=== PATIENT | male | born 1955 | race Hispanic/Latino ===

== ENCOUNTER 2023-11-18 08:11 | Inpatient (IN) | payer OTHER ==
--- OUTSIDE RECORDS SUMMARY | 2023-11-18 08:16 | XMS REPORT | Continuity of Care Document ---
Author Name Unknown Address [address] [facility] [address] [place] [address] [facility] thconnect Address [address] [facility] [address] [place] [address] Care Team Providers Care Distribution Center Associate Name Role Phone Ricardo Delgado Attending Clinician Unavailable Payers Payer Name Policy Type Policy Number Effective Date Expirati on Date Source [facility] AARP MCR Advantage (HMO-POS) [id number] 2021 00:00:00 [facility] Problems Condition Name Condition Details Condition Category Status Onset Date Resolution Date Last Treatment Date Treating Clinician Comments Source Erectile dysfunctio n Erectile dysfunctio n Problem [facility] Mixed hyperlipid emia Hyperlipid emia, mixed Problem [facility] Stented coronary artery Stented coronary artery Problem [facility] Myocardial infarction Myocardial infarction Problem [facility] Type II diabetes mellitus well controlled Diabetes type 2, controlled Problem [facility] Gastroesop hageal reflux disease Gastroesop hageal reflux disease Problem [facility] 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 Problem [facility] Hypertensi on Hypertensi on Problem [facility] Old myocardial infarction Old myocardial infarction Problem [facility] Essential hypertensi on Benign essential HTN Problem [facility] Coronary artery disease Coronary artery disease Problem [facility] Chronic obstructiv e pulmonary disease Chronic obstructiv e pulmonary disease (COPD) suggested by initial evaluation Problem [facility] Nicotine dependence Nicotine dependence Problem [facility] [id number] Primary osteoarthr itis of left knee Problem [facility] [id number] Noncomplia nce with dietary restrictio n Problem [facility] [id number] Essential hypertrigl yceridemia Problem [facility] [id number] Type 2 diabetes mellitus with hyperglyce jaxon Problem [facility] [id number] Leukocytos is, unspecifie d type Problem [facility] Osteoarthr itis of multiple joints Osteoarthr itis of multiple joints Problem [facility] [id number] Proteinuri a, unspecifie d Problem [facility] [id number] Type 2 diabetes mellitus with other diabetic kidney complicati on Problem [facility] [id number] Other obesity due to excess calories Problem [facility] [id number] Body mass index (BMI) of 30.0-30.9 in adult Problem [facility] [id number] Coronary artery disease involving chip[place]wa-cree coronary artery of chip[place]wa[place]cree heart with angina pectoris Problem [facility] [id number] Degenerati on of lumbar interverte bral disc Problem [facility] [id number] Hypercalce jaxon Problem [facility] [id number] Hypoparath yroidism, unspecifie d hypoparath yroidism type Problem [facility] [id number] PAD (periphera l artery disease) Problem [facility] Allergies, Adverse Reactions, Alerts Allergy Name Allergy Type Status Severity Reaction(s) Onset Date Inactive Date Treating Clinician Comments Source canaglif lozin canaglif lozin Active Unknown [facility] dapaglif lozin dapaglif lozin Active Unknown [facility] Social History Social Habit Start Date Stop Date Quantity Comments Source History of Tobacco Use [facility] Sex Assigned At [facility] Smoking Status Start Date Stop Date Source Former Smoker 2023-09-07 00:00:00 2023-09-07 00:00:00 [facility] Medications Ordered Medication Name Filled Medication Name Start Date Stop Date Current Medication? Ordering Clinician Indication Dosage Frequency Signature (SIG) Comments Components Source Fenofibrate 145 MG Fenofibrate 145 MG 5-11 00:00: 00 No 1{table t} QD Fenofibrat e 145 MG Toradol (Ketorolac) Toradol (Ketorolac) 3- 00:00: 00 No 60mg [facility] Toradol (Ketorolac) Toradol (Ketorolac) 3- 00:00: 00 No 60mg [facility] Toradol (Ketorolac) Toradol (Ketorolac) 3- 00:00: 00 No 60mg [facility] Toradol (Ketorolac) Toradol (Ketorolac) 3- 00:00: 00 No 60mg [facility] Toradol (Ketorolac) Toradol (Ketorolac) 3-02 00:00: 00 No 60mg [facility] Toradol (Ketorolac) Toradol (Ketorolac) 3- 00:00: 00 No 60mg [facility] Toradol (Ketorolac) Toradol (Ketorolac) 3-02 00:00: 00 No 60mg [facility] Toradol (Ketorolac) Toradol (Ketorolac) 3-02 00:00: 00 No 60mg [facility] Toradol (Ketorolac) Toradol (Ketorolac) 0 3-02 00:00: 00 No 60mg [facility] Toradol (Ketorolac) Toradol (Ketorolac) 0 3-02 00:00: 00 No 60mg [facility] Toradol (Ketorolac) Toradol (Ketorolac) 0 3- 00:00: 00 No 60mg [facility] Toradol (Ketorolac) Toradol (Ketorolac) 0 3- 00:00: 00 No 60mg [facility] Toradol (Ketorolac) Toradol (Ketorolac) 0 3- 00:00: 00 No 60mg [facility] Toradol (Ketorolac) Toradol (Ketorolac) 0 3- 00:00: 00 No 60mg [facility] Toradol (Ketorolac) Toradol (Ketorolac) 0 01-22 00:00: 00 No 60mg [facility] Toradol (Ketorolac) Toradol (Ketorolac) 0 3- 00:00: 00 No 60mg [facility] Toradol (Ketorolac) Toradol (Ketorolac) 0 3- 00:00: 00 No 60mg [facility] Toradol (Ketorolac) Toradol (Ketorolac) 0 - 00:00: 00 No 60mg [facility] Toradol (Ketorolac) Toradol (Ketorolac) 0 3- 00:00: 00 No 60mg [facility] Toradol (Ketorolac) Toradol (Ketorolac) 0 3- 00:00: 00 No 60mg [facility] Toradol (Ketorolac) Toradol (Ketorolac) 0 3- 00:00: 00 No 60mg [facility] Toradol (Ketorolac) Toradol (Ketorolac) 0 3- 00:00: 00 No 60mg [facility] methylPREDN ISolone 4 MG methylPREDN ISolone 4 MG 0 3- 00:00: 01-28 00:00 :00 No QD methylPRED NISolone 4 MG methylPREDN ISolone 4 MG methylPREDN ISolone 4 MG 01-22 00:00: 01-28 00:00 :00 No QD methylPRED NISolone 4 MG Omeprazole Omeprazole 04-14 00:00: 00 Yes Ricardo Delgado 1 capsule [facility] Janumet XR Janumet XR Yes Ricardo Delgado take 2 tablets by mouth once daily [facility] Amlodipine Besylate Amlodipine Besylate Yes Ricardo Delgado 1 tablet [facility] Carvedilol Carvedilol Yes Ricardo Delgado TAKE 1 TABLET BY MOUTH TWICE DAILY [facility] Lisinopril Lisinopril Yes Ricardo Delgado 1 tablet [facility] Coreg Coreg Yes Ricardo Delgado 1 tablet with food [facility] Simvastatin Simvastatin Yes Ricardo Delgado 1 tablet in the evening [facility] Vascepa Vascepa Yes Ricardo Delgado take two capsules by mouth twice daily [facility] Victoza Victoza Yes Ricardo Delgado INJECT 1.8MG UNDER THE SKIN ONCE A DAY [facility] Aspir-81 Aspir-81 Yes Ricardo Delgado 1 tablet [facility] Simvastatin Simvastatin Yes Ricardo Delgado TAKE 1 TABLET BY MOUTH ONCE DAILY [facility] Coreg 6.25 MG Coreg 6.25 MG No 1{table t_with_ food} BID Coreg 6.25 MG Carvedilol 6.25 MG Carvedilol 6.25 MG No Carvedilol 6.25 MG Simvastatin 80 MG Simvastatin 80 MG No 1{table t_in_th e_eveni ng} QD Simvastati n 80 MG Omeprazole 20 MG Omeprazole 20 MG No 1{capsu le} QD Omeprazole 20 MG Victoza 18 MG/3ML Victoza 18 MG/3ML No QD Victoza 18 MG/3ML Janumet XR 50-1000 MG Janumet XR 50-1000 MG No Janumet XR 50-1000 MG Carvedilol 6.25 MG Carvedilol 6.25 MG No Carvedilol 6.25 MG Victoza 18 MG/3ML Victoza 18 MG/3ML No Victoza 18 MG/3ML Vascepa 1 GM Vascepa 1 GM No Vascepa 1 GM Omeprazole 20 MG Omeprazole 20 MG No 1{capsu le} QD Omeprazole 20 MG Janumet XR 50-1000 MG Janumet XR 50-1000 MG No QD Janumet XR 50-1000 MG Lisinopril 5 MG Lisinopril 5 MG No Lisinopril 5 MG amLODIPine Besylate 5 MG amLODIPine Besylate 5 MG No 1{table t} QD amLODIPine Besylate 5 MG Simvastatin 80 MG Simvastatin 80 MG No 1{table t_in_th e_eveni ng} QD Simvastati n 80 MG amLODIPine Besylate 5 MG amLODIPine Besylate 5 MG No amLODIPine Besylate 5 MG Coreg 6.25 MG Coreg 6.25 MG No 1{table t_with_ food} BID Coreg 6.25 MG Aspir-81 81 MG Aspir-81 81 MG No 1{table t} QD Aspir-81 81 MG Vascepa 1 GM Vascepa 1 GM No BID Vascepa 1 GM Simvastatin 80 MG Simvastatin 80 MG No Simvastati n 80 MG Lisinopril 5 MG Lisinopril 5 MG No 1{table t} QD Lisinopril 5 MG Victoza 18 MG/3ML Victoza 18 MG/3ML No QD Victoza 18 MG/3ML Janumet XR 50-1000 MG Janumet XR 50-1000 MG No Janumet XR 50-1000 MG Carvedilol 6.25 MG Carvedilol 6.25 MG No Carvedilol 6.25 MG Victoza 18 MG/3ML Victoza 18 MG/3ML No Victoza 18 MG/3ML Vascepa 1 GM Vascepa 1 GM No Vascepa 1 GM Omeprazole 20 MG Omeprazole 20 MG No 1{capsu le} QD Omeprazole 20 MG Janumet XR 50-1000 MG Janumet XR 50-1000 MG No QD Janumet XR 50-1000 MG Lisinopril 5 MG Lisinopril 5 MG No Lisinopril 5 MG amLODIPine Besylate 5 MG amLODIPine Besylate 5 MG No 1{table t} QD amLODIPine Besylate 5 MG Simvastatin 80 MG Simvastatin 80 MG No 1{table t_in_ e_eveni ng} QD Simvastati n 80 MG amLODIPine Besylate 5 MG amLODIPine Besylate 5 MG No amLODIPine Besylate 5 MG Coreg 6.25 MG Coreg 6.25 MG No 1{table t_with_ food} BID Coreg 6.25 MG Aspir-81 81 MG Aspir-81 81 MG No 1{table t} QD Aspir-81 81 MG Vascepa 1 GM Vascepa 1 GM No BID Vascepa 1 GM Simvastatin 80 MG Simvastatin 80 MG No Simvastati n 80 MG Lisinopril 5 MG Lisinopril 5 MG No 1{table t} QD Lisinopril 5 MG Janumet XR 50-1000 MG Janumet XR 50-1000 MG No Janumet XR 50-1000 MG amLODIPine Besylate 5 MG amLODIPine Besylate 5 MG No amLODIPine Besylate 5 MG Janumet XR 50-1000 MG Janumet XR 50-1000 MG No QD Janumet XR 50-1000 MG Victoza 18 MG/3ML Victoza 18 MG/3ML No QD Victoza 18 MG/3ML Coreg 6.25 MG Coreg 6.25 MG No 1{table t_with_ food} BID Coreg 6.25 MG Aspir-81 81 MG Aspir-81 81 MG No 1{table t} QD Aspir-81 81 MG Lisinopril 5 MG Lisinopril 5 MG No 1{table t} QD Lisinopril 5 MG Omeprazole 20 MG Omeprazole 20 MG No 1{capsu le} QD Omeprazole 20 MG Vascepa 1 GM Vascepa 1 GM No Vascepa 1 GM Victoza 18 MG/3ML Victoza 18 MG/3ML No Victoza 18 MG/3ML Simvastatin 80 MG Simvastatin 80 MG No 1{table t_in_ e_eveni ng} QD Simvastati n 80 MG Lisinopril 5 MG Lisinopril 5 MG No Lisinopril 5 MG Simvastatin 80 MG Simvastatin 80 MG No Simvastati n 80 MG amLODIPine Besylate 5 MG amLODIPine Besylate 5 MG No 1{table t} QD amLODIPine Besylate 5 MG Vascepa 1 GM Vascepa 1 GM No BID Vascepa 1 GM Carvedilol 6.25 MG Carvedilol 6.25 MG No Carvedilol 6.25 MG Omeprazole 20 MG Omeprazole 20 MG No 1{capsu le} QD Omeprazole 20 MG Cyclobenzap rine HCl 10 MG Cyclobenzap rine HCl 10 MG No 1{table t_at_be dtime_a s_neede d} QD Cyclobenza esha HCl 10 MG Janumet XR 50-1000 MG Janumet XR 50-1000 MG No QD Janumet XR 50-1000 MG Victoza 18 MG/3ML Victoza 18 MG/3ML No QD Victoza 18 MG/3ML Lisinopril 5 MG Lisinopril 5 MG No 1{table t} QD Lisinopril 5 MG Aspir-81 81 MG Aspir-81 81 MG No 1{table t} QD Aspir-81 81 MG Simvastatin 80 MG Simvastatin 80 MG No 1{table t_in_ e_eveni ng} QD Simvastati n 80 MG amLODIPine Besylate 5 MG amLODIPine Besylate 5 MG No 1{table t} QD amLODIPine Besylate 5 MG Vascepa 1 GM Vascepa 1 GM No BID Vascepa 1 GM Coreg 6.25 MG Coreg 6.25 MG No 1{table t_with_ food} BID Coreg 6.25 MG Omeprazole 20 MG Omeprazole 20 MG No 1{capsu le} QD Omeprazole 20 MG Cyclobenzap rine HCl 10 MG Cyclobenzap rine HCl 10 MG No 1{table t_at_be dtime_a s_neede d} QD Cyclobenza esha HCl 10 MG Janumet XR 50-1000 MG Janumet XR 50-1000 MG No QD Janumet XR 50-1000 MG Victoza 18 MG/3ML Victoza 18 MG/3ML No QD Victoza 18 MG/3ML Lisinopril 5 MG Lisinopril 5 MG No 1{table t} QD Lisinopril 5 MG Aspir-81 81 MG Aspir-81 81 MG No 1{table t} QD Aspir-81 81 MG Simvastatin 80 MG Simvastatin 80 MG No 1{table t_in e_eveni ng} QD Simvastati n 80 MG amLODIPine Besylate 5 MG amLODIPine Besylate 5 MG No 1{table t} QD amLODIPine Besylate 5 MG Vascepa 1 GM Vascepa 1 GM No BID Vascepa 1 GM Coreg 6.25 MG Coreg 6.25 MG No 1{table t_with_ food} BID Coreg 6.25 MG Omeprazole 20 MG Omeprazole 20 MG No 1{capsu le} QD Omeprazole 20 MG amLODIPine Besylate 5 MG amLODIPine Besylate 5 MG No amLODIPine Besylate 5 MG Victoza 18 MG/3ML Victoza 18 MG/3ML No Victoza 18 MG/3ML Lisinopril 5 MG Lisinopril 5 MG No 1{table t} QD Lisinopril 5 MG Aspir-81 81 MG Aspir-81 81 MG No 1{table t} QD Aspir-81 81 MG Cyclobenzap rine HCl 10 MG Cyclobenzap rine HCl 10 MG No 1{table t_at_be dtime_a s_neede d} QD Cyclobenza esha HCl 10 MG Simvastatin 80 MG Simvastatin 80 MG No Simvastati n 80 MG Janumet XR 50-1000 MG Janumet XR 50-1000 MG No Janumet XR 50-1000 MG Vascepa 1 GM Vascepa 1 GM No BID Vascepa 1 GM Coreg 6.25 MG Coreg 6.25 MG No 1{table t_with_ food} BID Coreg 6.25 MG Omeprazole 20 MG Omeprazole 20 MG No 1{capsu le} QD Omeprazole 20 MG amLODIPine Besylate 5 MG amLODIPine Besylate 5 MG No amLODIPine Besylate 5 MG Victoza 18 MG/3ML Victoza 18 MG/3ML No Victoza 18 MG/3ML Lisinopril 5 MG Lisinopril 5 MG No 1{table t} QD Lisinopril 5 MG Aspir-81 81 MG Aspir-81 81 MG No 1{table t} QD Aspir-81 81 MG Cyclobenzap rine HCl 10 MG Cyclobenzap rine HCl 10 MG No 1{table t_at_be dtime_a s_neede d} QD Cyclobenza esha HCl 10 MG Simvastatin 80 MG Simvastatin 80 MG No Simvastati n 80 MG Janumet XR 50-1000 MG Janumet XR 50-1000 MG No Janumet XR 50-1000 MG Vascepa 1 GM Vascepa 1 GM No BID Vascepa 1 GM Coreg 6.25 MG Coreg 6.25 MG No 1{table t_with_ food} BID Coreg 6.25 MG Omeprazole 20 MG Omeprazole 20 MG No 1{capsu le} QD Omeprazole 20 MG Janumet XR 50-1000 MG Janumet XR 50-1000 MG No QD Janumet XR 50-1000 MG Victoza 18 MG/3ML Victoza 18 MG/3ML No Victoza 18 MG/3ML Coreg 6.25 MG Coreg 6.25 MG No 1{table t_with_ food} BID Coreg 6.25 MG Lisinopril 5 MG Lisinopril 5 MG No 1{table t} QD Lisinopril 5 MG amLODIPine Besylate 5 MG amLODIPine Besylate 5 MG No amLODIPine Besylate 5 MG Simvastatin 80 MG Simvastatin 80 MG No Simvastati n 80 MG Vascepa 1 GM Vascepa 1 GM No Vascepa 1 GM Aspir-81 81 MG Aspir-81 81 MG No 1{table t} QD Aspir-81 81 MG Cyclobenzap rine HCl 10 MG Cyclobenzap rine HCl 10 MG No 1{table t_at_be dtime_a s_neede d} QD Cyclobenza esha HCl 10 MG Omeprazole 20 MG Omeprazole 20 MG No 1{capsu le} QD Omeprazole 20 MG Janumet XR 50-1000 MG Janumet XR 50-1000 MG No QD Janumet XR 50-1000 MG Victoza 18 MG/3ML Victoza 18 MG/3ML No Victoza 18 MG/3ML Coreg 6.25 MG Coreg 6.25 MG No 1{table t_with_ food} BID Coreg 6.25 MG Lisinopril 5 MG Lisinopril 5 MG No 1{table t} QD Lisinopril 5 MG amLODIPine Besylate 5 MG amLODIPine Besylate 5 MG No amLODIPine Besylate 5 MG Simvastatin 80 MG Simvastatin 80 MG No Simvastati n 80 MG Vascepa 1 GM Vascepa 1 GM No Vascepa 1 GM Aspir-81 81 MG Aspir-81 81 MG No 1{table t} QD Aspir-81 81 MG Cyclobenzap rine HCl 10 MG Cyclobenzap rine HCl 10 MG No 1{table t_at_be dtime_a s_neede d} QD Cyclobenza esha HCl 10 MG Omeprazole 20 MG Omeprazole 20 MG No 1{capsu le} QD Omeprazole 20 MG Janumet XR 50-1000 MG Janumet XR 50-1000 MG No QD Janumet XR 50-1000 MG Victoza 18 MG/3ML Victoza 18 MG/3ML No Victoza 18 MG/3ML Coreg 6.25 MG Coreg 6.25 MG No 1{table t_with_ food} BID Coreg 6.25 MG Lisinopril 5 MG Lisinopril 5 MG No 1{table t} QD Lisinopril 5 MG amLODIPine Besylate 5 MG amLODIPine Besylate 5 MG No amLODIPine Besylate 5 MG Simvastatin 80 MG Simvastatin 80 MG No Simvastati n 80 MG Vascepa 1 GM Vascepa 1 GM No Vascepa 1 GM Aspir-81 81 MG Aspir-81 81 MG No 1{table t} QD Aspir-81 81 MG Cyclobenzap rine HCl 10 MG Cyclobenzap rine HCl 10 MG No 1{table t_at_be dtime_a s_neede d} QD Cyclobenza esha HCl 10 MG Omeprazole 20 MG Omeprazole 20 MG No 1{capsu le} QD Omeprazole 20 MG Janumet XR 50-1000 MG Janumet XR 50-1000 MG No QD Janumet XR 50-1000 MG Victoza 18 MG/3ML Victoza 18 MG/3ML No Victoza 18 MG/3ML Coreg 6.25 MG Coreg 6.25 MG No 1{table t_with_ food} BID Coreg 6.25 MG Lisinopril 5 MG Lisinopril 5 MG No 1{table t} QD Lisinopril 5 MG amLODIPine Besylate 5 MG amLODIPine Besylate 5 MG No amLODIPine Besylate 5 MG Simvastatin 80 MG Simvastatin 80 MG No Simvastati n 80 MG Vascepa 1 GM Vascepa 1 GM No Vascepa 1 GM Aspir-81 81 MG Aspir-81 81 MG No 1{table t} QD Aspir-81 81 MG Cyclobenzap rine HCl 10 MG Cyclobenzap rine HCl 10 MG No 1{table t_at_be dtime_a s_neede d} QD Cyclobenza esha HCl 10 MG Aspir-81 81 MG Aspir-81 81 MG No 1{table t} QD Aspir-81 81 MG amLODIPine Besylate 5 MG amLODIPine Besylate 5 MG No amLODIPine Besylate 5 MG Simvastatin 80 MG Simvastatin 80 MG No 1{table t_in_th e_eveni ng} QD Simvastati n 80 MG Coreg 6.25 MG Coreg 6.25 MG No 1{table t_with_ food} BID Coreg 6.25 MG Victoza 18 MG/3ML Victoza 18 MG/3ML No Victoza 18 MG/3ML Lisinopril 5 MG Lisinopril 5 MG No Lisinopril 5 MG Janumet XR 50-1000 MG Janumet XR 50-1000 MG No QD Janumet XR 50-1000 MG amLODIPine Besylate 5 MG amLODIPine Besylate 5 MG No 1{table t} QD amLODIPine Besylate 5 MG Omeprazole 20 MG Omeprazole 20 MG No 1{capsu le} QD Omeprazole 20 MG Lisinopril 5 MG Lisinopril 5 MG No 1{table t} QD Lisinopril 5 MG Cyclobenzap rine HCl 10 MG Cyclobenzap rine HCl 10 MG No 1{table t_at_be dtime_a s_neede d} QD Cyclobenza esha HCl 10 MG Janumet XR 50-1000 MG Janumet XR 50-1000 MG No QD Janumet XR 50-1000 MG Carvedilol 6.25 MG Carvedilol 6.25 MG No Carvedilol 6.25 MG Vascepa 1 GM Vascepa 1 GM No Vascepa 1 GM Victoza 18 MG/3ML Victoza 18 MG/3ML No QD Victoza 18 MG/3ML Simvastatin 80 MG Simvastatin 80 MG No Simvastati n 80 MG Carvedilol 6.25 MG Carvedilol 6.25 MG No Carvedilol 6.25 MG Lisinopril 5 MG Lisinopril 5 MG No Lisinopril 5 MG Lisinopril 5 MG Lisinopril 5 MG No 1{table t} QD Lisinopril 5 MG Cyclobenzap rine HCl 10 MG Cyclobenzap rine HCl 10 MG No 1{table t_at_be dtime_a s_neede d} QD Cyclobenza esha HCl 10 MG Janumet XR 50-1000 MG Janumet XR 50-1000 MG No QD Janumet XR 50-1000 MG Omeprazole 20 MG Omeprazole 20 MG No 1{capsu le} QD Omeprazole 20 MG Simvastatin 80 MG Simvastatin 80 MG No 1{table t_in_th e_eveni ng} QD Simvastati n 80 MG amLODIPine Besylate 5 MG amLODIPine Besylate 5 MG No 1{table t} QD amLODIPine Besylate 5 MG amLODIPine Besylate 5 MG amLODIPine Besylate 5 MG No amLODIPine Besylate 5 MG Simvastatin 80 MG Simvastatin 80 MG No Simvastati n 80 MG Victoza 18 MG/3ML Victoza 18 MG/3ML No QD Victoza 18 MG/3ML Vascepa 1 GM Vascepa 1 GM No Vascepa 1 GM Aspir-81 81 MG Aspir-81 81 MG No 1{table t} QD Aspir-81 81 MG Janumet XR 50-1000 MG Janumet XR 50-1000 MG No QD Janumet XR 50-1000 MG Coreg 6.25 MG Coreg 6.25 MG No 1{table t_with_ food} BID Coreg 6.25 MG Fenofibrate 145 MG Fenofibrate 145 MG No 1{table t} QD Fenofibrat e 145 MG Victoza 18 MG/3ML Victoza 18 MG/3ML No Victoza 18 MG/3ML Fenofibrate 145 MG Fenofibrate 145 MG No 1{table t} QD Fenofibrat e 145 MG Victoza 18 MG/3ML Victoza 18 MG/3ML No QD Victoza 18 MG/3ML Aspir-81 81 MG Aspir-81 81 MG No 1{table t} QD Aspir-81 81 MG Simvastatin 80 MG Simvastatin 80 MG No Simvastati n 80 MG Carvedilol 6.25 MG Carvedilol 6.25 MG No Carvedilol 6.25 MG Lisinopril 5 MG Lisinopril 5 MG No Lisinopril 5 MG Omeprazole 20 MG Omeprazole 20 MG No 1{capsu le} QD Omeprazole 20 MG amLODIPine Besylate 5 MG amLODIPine Besylate 5 MG No 1{table t} QD amLODIPine Besylate 5 MG Lisinopril 5 MG Lisinopril 5 MG No 1{table t} QD Lisinopril 5 MG Vascepa 1 GM Vascepa 1 GM No Vascepa 1 GM Simvastatin 80 MG Simvastatin 80 MG No 1{table t_in_ e_eveni ng} QD Simvastati n 80 MG Coreg 6.25 MG Coreg 6.25 MG No 1{table t_with_ food} BID Coreg 6.25 MG amLODIPine Besylate 5 MG amLODIPine Besylate 5 MG No amLODIPine Besylate 5 MG Janumet XR 50-1000 MG Janumet XR 50-1000 MG No QD Janumet XR 50-1000 MG Victoza 18 MG/3ML Victoza 18 MG/3ML No Victoza 18 MG/3ML Cyclobenzap rine HCl 10 MG Cyclobenzap rine HCl 10 MG No 1{table t_at_be dtime_a s_neede d} QD Cyclobenza esha HCl 10 MG Janumet XR 50-1000 MG Janumet XR 50-1000 MG No QD Janumet XR 50-1000 MG Lisinopril 5 MG Lisinopril 5 MG No 1{table t} QD Lisinopril 5 MG Carvedilol 6.25 MG Carvedilol 6.25 MG No Carvedilol 6.25 MG Fenofibrate 145 MG Fenofibrate 145 MG No Fenofibrat e 145 MG Simvastatin 80 MG Simvastatin 80 MG No 1{table t_in_th e_eveni ng} QD Simvastati n 80 MG Fenofibrate 145 MG Fenofibrate 145 MG No 1{table t} QD Fenofibrat e 145 MG Coreg 6.25 MG Coreg 6.25 MG No 1{table t_with_ food} BID Coreg 6.25 MG Victoza 18 MG/3ML Victoza 18 MG/3ML No Victoza 18 MG/3ML Janumet XR 50-1000 MG Janumet XR 50-1000 MG No QD Janumet XR 50-1000 MG Omeprazole 20 MG Omeprazole 20 MG No 1{capsu le} QD Omeprazole 20 MG Aspir-81 81 MG Aspir-81 81 MG No 1{table t} QD Aspir-81 81 MG amLODIPine Besylate 5 MG amLODIPine Besylate 5 MG No 1{table t} QD amLODIPine Besylate 5 MG Victoza 18 MG/3ML Victoza 18 MG/3ML No QD Victoza 18 MG/3ML Lisinopril 5 MG Lisinopril 5 MG No Lisinopril 5 MG Carvedilol 6.25 MG Carvedilol 6.25 MG No Carvedilol 6.25 MG Victoza 18 MG/3ML Victoza 18 MG/3ML No Victoza 18 MG/3ML Omeprazole 20 MG Omeprazole 20 MG No 1{capsu le} QD Omeprazole 20 MG Coreg 6.25 MG Coreg 6.25 MG No 1{table t_with_ food} BID Coreg 6.25 MG Aspir-81 81 MG Aspir-81 81 MG No 1{table t} QD Aspir-81 81 MG Lisinopril 5 MG Lisinopril 5 MG No Lisinopril 5 MG Simvastatin 80 MG Simvastatin 80 MG No Simvastati n 80 MG Janumet XR 50-1000 MG Janumet XR 50-1000 MG No QD Janumet XR 50-1000 MG Fenofibrate 145 MG Fenofibrate 145 MG No Fenofibrat e 145 MG Victoza 18 MG/3ML Victoza 18 MG/3ML No QD Victoza 18 MG/3ML amLODIPine Besylate 5 MG amLODIPine Besylate 5 MG No amLODIPine Besylate 5 MG Lisinopril 5 MG Lisinopril 5 MG No 1{table t} QD Lisinopril 5 MG Carvedilol 6.25 MG Carvedilol 6.25 MG No Carvedilol 6.25 MG Victoza 18 MG/3ML Victoza 18 MG/3ML No Victoza 18 MG/3ML Omeprazole 20 MG Omeprazole 20 MG No 1{capsu le} QD Omeprazole 20 MG Coreg 6.25 MG Coreg 6.25 MG No 1{table t_with_ food} BID Coreg 6.25 MG Aspir-81 81 MG Aspir-81 81 MG No 1{table t} QD Aspir-81 81 MG Lisinopril 5 MG Lisinopril 5 MG No Lisinopril 5 MG Simvastatin 80 MG Simvastatin 80 MG No Simvastati n 80 MG Janumet XR 50-1000 MG Janumet XR 50-1000 MG No QD Janumet XR 50-1000 MG Fenofibrate 145 MG Fenofibrate 145 MG No Fenofibrat e 145 MG Victoza 18 MG/3ML Victoza 18 MG/3ML No QD Victoza 18 MG/3ML amLODIPine Besylate 5 MG amLODIPine Besylate 5 MG No amLODIPine Besylate 5 MG Lisinopril 5 MG Lisinopril 5 MG No 1{table t} QD Lisinopril 5 MG Carvedilol 6.25 MG Carvedilol 6.25 MG No Carvedilol 6.25 MG Victoza 18 MG/3ML Victoza 18 MG/3ML No Victoza 18 MG/3ML Fenofibrate 145 MG Fenofibrate 145 MG No Fenofibrat e 145 MG Omeprazole 20 MG Omeprazole 20 MG No 1{capsu le} QD Omeprazole 20 MG Coreg 6.25 MG Coreg 6.25 MG No 1{table t_with_ food} BID Coreg 6.25 MG Simvastatin 80 MG Simvastatin 80 MG No 1{table t_in_th e_eveni ng} QD Simvastati n 80 MG amLODIPine Besylate 5 MG amLODIPine Besylate 5 MG No 1{table t} QD amLODIPine Besylate 5 MG Fenofibrate 145 MG Fenofibrate 145 MG No 1{table t} QD Fenofibrat e 145 MG Lisinopril 5 MG Lisinopril 5 MG No Lisinopril 5 MG Victoza 18 MG/3ML Victoza 18 MG/3ML No QD Victoza 18 MG/3ML Simvastatin 80 MG Simvastatin 80 MG No Simvastati n 80 MG Janumet XR 50-1000 MG Janumet XR 50-1000 MG No QD Janumet XR 50-1000 MG Aspir-81 81 MG Aspir-81 81 MG No 1{table t} QD Aspir-81 81 MG Lisinopril 5 MG Lisinopril 5 MG No 1{table t} QD Lisinopril 5 MG amLODIPine Besylate 5 MG amLODIPine Besylate 5 MG No amLODIPine Besylate 5 MG Janumet XR 50-1000 MG Janumet XR 50-1000 MG No QD Janumet XR 50-1000 MG Carvedilol 6.25 MG Carvedilol 6.25 MG No Carvedilol 6.25 MG Victoza 18 MG/3ML Victoza 18 MG/3ML No Victoza 18 MG/3ML Fenofibrate 145 MG Fenofibrate 145 MG No Fenofibrat e 145 MG Omeprazole 20 MG Omeprazole 20 MG No 1{capsu le} QD Omeprazole 20 MG Coreg 6.25 MG Coreg 6.25 MG No 1{table t_with_ food} BID Coreg 6.25 MG Simvastatin 80 MG Simvastatin 80 MG No 1{table t_in_th e_eveni ng} QD Simvastati n 80 MG amLODIPine Besylate 5 MG amLODIPine Besylate 5 MG No 1{table t} QD amLODIPine Besylate 5 MG Fenofibrate 145 MG Fenofibrate 145 MG No 1{table t} QD Fenofibrat e 145 MG Lisinopril 5 MG Lisinopril 5 MG No Lisinopril 5 MG Victoza 18 MG/3ML Victoza 18 MG/3ML No QD Victoza 18 MG/3ML Simvastatin 80 MG Simvastatin 80 MG No Simvastati n 80 MG Janumet XR 50-1000 MG Janumet XR 50-1000 MG No QD Janumet XR 50-1000 MG Aspir-81 81 MG Aspir-81 81 MG No 1{table t} QD Aspir-81 81 MG Lisinopril 5 MG Lisinopril 5 MG No 1{table t} QD Lisinopril 5 MG amLODIPine Besylate 5 MG amLODIPine Besylate 5 MG No amLODIPine Besylate 5 MG Janumet XR 50-1000 MG Janumet XR 50-1000 MG No QD Janumet XR 50-1000 MG Simvastatin 80 MG Simvastatin 80 MG No Simvastati n 80 MG amLODIPine Besylate 5 MG amLODIPine Besylate 5 MG No 1{table t} QD amLODIPine Besylate 5 MG Coreg 6.25 MG Coreg 6.25 MG No 1{table t_with_ food} BID Coreg 6.25 MG amLODIPine Besylate 5 MG amLODIPine Besylate 5 MG No amLODIPine Besylate 5 MG Janumet XR 50-1000 MG Janumet XR 50-1000 MG No QD Janumet XR 50-1000 MG Victoza 18 MG/3ML Victoza 18 MG/3ML No Victoza 18 MG/3ML Omeprazole 20 MG Omeprazole 20 MG No 1{capsu le} QD Omeprazole 20 MG Lisinopril 5 MG Lisinopril 5 MG No 1{table t} QD Lisinopril 5 MG Fenofibrate 145 MG Fenofibrate 145 MG No 1{table t} QD Fenofibrat e 145 MG Aspir-81 81 MG Aspir-81 81 MG No 1{table t} QD Aspir-81 81 MG Simvastatin 80 MG Simvastatin 80 MG No 1{table t_in_th e_eveni ng} QD Simvastati n 80 MG Simvastatin 80 MG Simvastatin 80 MG No Simvastati n 80 MG amLODIPine Besylate 5 MG amLODIPine Besylate 5 MG No 1{table t} QD amLODIPine Besylate 5 MG Coreg 6.25 MG Coreg 6.25 MG No 1{table t_with_ food} BID Coreg 6.25 MG amLODIPine Besylate 5 MG amLODIPine Besylate 5 MG No amLODIPine Besylate 5 MG Janumet XR 50-1000 MG Janumet XR 50-1000 MG No QD Janumet XR 50-1000 MG Victoza 18 MG/3ML Victoza 18 MG/3ML No Victoza 18 MG/3ML Omeprazole 20 MG Omeprazole 20 MG No 1{capsu le} QD Omeprazole 20 MG Lisinopril 5 MG Lisinopril 5 MG No 1{table t} QD Lisinopril 5 MG Fenofibrate 145 MG Fenofibrate 145 MG No 1{table t} QD Fenofibrat e 145 MG Aspir-81 81 MG Aspir-81 81 MG No 1{table t} QD Aspir-81 81 MG Simvastatin 80 MG Simvastatin 80 MG No 1{table t_in_th e_eveni ng} QD Simvastati n 80 MG Simvastatin 80 MG Simvastatin 80 MG No Simvastati n 80 MG Omeprazole 20 MG Omeprazole 20 MG No 1{capsu le} QD Omeprazole 20 MG amLODIPine Besylate 5 MG amLODIPine Besylate 5 MG No amLODIPine Besylate 5 MG amLODIPine Besylate 5 MG amLODIPine Besylate 5 MG No 1{table t} QD amLODIPine Besylate 5 MG Victoza 18 MG/3ML Victoza 18 MG/3ML No Victoza 18 MG/3ML Aspir-81 81 MG Aspir-81 81 MG No 1{table t} QD Aspir-81 81 MG Simvastatin 80 MG Simvastatin 80 MG No 1{table t_in_th e_eveni ng} QD Simvastati n 80 MG Lisinopril 5 MG Lisinopril 5 MG No Lisinopril 5 MG Fenofibrate 145 MG Fenofibrate 145 MG No 1{table t} QD Fenofibrat e 145 MG Carvedilol 6.25 MG Carvedilol 6.25 MG No Carvedilol 6.25 MG Janumet XR 50-1000 MG Janumet XR 50-1000 MG No QD Janumet XR 50-1000 MG Simvastatin 80 MG Simvastatin 80 MG No Simvastati n 80 MG Omeprazole 20 MG Omeprazole 20 MG No 1{capsu le} QD Omeprazole 20 MG Aspir-81 81 MG Aspir-81 81 MG No 1{table t} QD Aspir-81 81 MG Carvedilol 6.25 MG Carvedilol 6.25 MG No Carvedilol 6.25 MG Janumet XR 50-1000 MG Janumet XR 50-1000 MG No QD Janumet XR 50-1000 MG amLODIPine Besylate 5 MG amLODIPine Besylate 5 MG No amLODIPine Besylate 5 MG Fenofibrate 145 MG Fenofibrate 145 MG No 1{table t} QD Fenofibrat e 145 MG Lisinopril 5 MG Lisinopril 5 MG No Lisinopril 5 MG Victoza 18 MG/3ML Victoza 18 MG/3ML No Victoza 18 MG/3ML Aspir-81 81 MG Aspir-81 81 MG No 1{table t} QD Aspir-81 81 MG amLODIPine Besylate 5 MG amLODIPine Besylate 5 MG No 1{table t} QD amLODIPine Besylate 5 MG Victoza 18 MG/3ML Victoza 18 MG/3ML No QD Victoza 18 MG/3ML Vascepa 1 GM Vascepa 1 GM No BID Vascepa 1 GM Simvastatin 80 MG Simvastatin 80 MG No Simvastati n 80 MG Omeprazole 20 MG Omeprazole 20 MG No 1{capsu le} QD Omeprazole 20 MG Aspir-81 81 MG Aspir-81 81 MG No 1{table t} QD Aspir-81 81 MG Carvedilol 6.25 MG Carvedilol 6.25 MG No Carvedilol 6.25 MG Janumet XR 50-1000 MG Janumet XR 50-1000 MG No QD Janumet XR 50-1000 MG amLODIPine Besylate 5 MG amLODIPine Besylate 5 MG No amLODIPine Besylate 5 MG Fenofibrate 145 MG Fenofibrate 145 MG No 1{table t} QD Fenofibrat e 145 MG Lisinopril 5 MG Lisinopril 5 MG No Lisinopril 5 MG Coreg 6.25 MG Coreg 6.25 MG No 1{table t_with_ food} BID Coreg 6.25 MG Victoza 18 MG/3ML Victoza 18 MG/3ML No Victoza 18 MG/3ML Lisinopril 5 MG Lisinopril 5 MG No 1{table t} QD Lisinopril 5 MG Janumet XR 50-1000 MG Janumet XR 50-1000 MG No Janumet XR 50-1000 MG Janumet XR 50-1000 MG Janumet XR 50-1000 MG No QD Janumet XR 50-1000 MG Simvastatin 80 MG Simvastatin 80 MG No Simvastati n 80 MG Omeprazole 20 MG Omeprazole 20 MG No 1{capsu le} QD Omeprazole 20 MG Aspir-81 81 MG Aspir-81 81 MG No 1{table t} QD Aspir-81 81 MG Carvedilol 6.25 MG Carvedilol 6.25 MG No Carvedilol 6.25 MG Janumet XR 50-1000 MG Janumet XR 50-1000 MG No QD Janumet XR 50-1000 MG amLODIPine Besylate 5 MG amLODIPine Besylate 5 MG No amLODIPine Besylate 5 MG Fenofibrate 145 MG Fenofibrate 145 MG No 1{table t} QD Fenofibrat e 145 MG Lisinopril 5 MG Lisinopril 5 MG No Lisinopril 5 MG Victoza 18 MG/3ML Victoza 18 MG/3ML No Victoza 18 MG/3ML amLODIPine Besylate 5 MG amLODIPine Besylate 5 MG No amLODIPine Besylate 5 MG Victoza 18 MG/3ML Victoza 18 MG/3ML No Victoza 18 MG/3ML Lisinopril 5 MG Lisinopril 5 MG No 1{table t} QD Lisinopril 5 MG Simvastatin 80 MG Simvastatin 80 MG No Simvastati n 80 MG Immunizations Ordered Immunization Name Filled Immunization Name Date Status Comments Source Moderna COVID-19 Vaccine (Low Dose Booster) Moderna COVID-19 Vaccine (Low Dose Booster) 2022-04-02 15:20:00 Completed [facility] Moderna COVID-19 Vaccine (Low Dose Booster) Moderna COVID-19 Vaccine (Low Dose Booster) 2022-04-02 15:20:00 Completed [facility] Moderna COVID-19 Vaccine (Low Dose Booster) Moderna COVID-19 Vaccine (Low Dose Booster) 2022-04-02 15:20:00 [facility] Moderna COVID-19 Vaccine (Low Dose Booster) Moderna COVID-19 Vaccine (Low Dose Booster) 2022-04-02 15:20:00 Completed [facility] Moderna COVID-19 Vaccine (Low Dose Booster) Moderna COVID-19 Vaccine (Low Dose Booster) 2022-04-02 15:20:00 Completed [facility] Moderna COVID-19 Vaccine (Low Dose Booster) Moderna COVID-19 Vaccine (Low Dose Booster) 2022-04-02 15:20:00 [facility] Moderna COVID-19 Vaccine (Low Dose Booster) Moderna COVID-19 Vaccine (Low Dose Booster) 2022-04-02 15:20:00 [facility] Shingrix Shingrix 2020-09-21 14:56:00 [facility] Shingrix Shingrix 2020-09-21 14:56:00 [facility] Shingrix Shingrix 2020-09-21 14:56:00 [facility] Shingrix Shingrix 2020-09-21 14:56:00 [facility] Shingrix Shingrix 2020-09-21 14:56:00 [facility] Shingrix Shingrix 2020-09-21 14:56:00 [facility] Shingrix Shingrix 2020-09-21 14:56:00 [facility] Shingrix Shingrix 2020-09-21 14:56:00 [facility] Shingrix Shingrix 2020-09-21 14:56:00 [facility] Shingrix Shingrix 2020-09-21 14:56:00 [facility] Shingrix Shingrix 2020-09-21 14:56:00 [facility] Shingrix Shingrix 2020-09-21 14:56:00 [facility] Shingrix Shingrix 2020-09-21 14:56:00 Completed [facility] Shingrix Shingrix 2020-09-21 14:56:00 Completed [facility] Shingrix Shingrix 2020-09-21 14:56:00 Completed [facility] Shingrix Shingrix 2020-09-21 14:56:00 Completed [facility] Shingrix Shingrix 2020-09-21 14:56:00 Completed [facility] Shingrix Shingrix 2020-09-21 14:56:00 Completed [facility] Shingrix Shingrix 2020-09-21 14:56:00 Completed [facility] Shingrix Shingrix 2020-09-21 14:56:00 Completed [facility] FLUZONE HIGH DOSE OVER 65 FLUZONE HIGH DOSE OVER 65 2020-09-21 13:38:00 Completed [facility] FLUZONE HIGH DOSE OVER 65 FLUZONE HIGH DOSE OVER 65 2020-09-21 13:38:00 Completed [facility] FLUZONE HIGH DOSE OVER 65 FLUZONE HIGH DOSE OVER 65 2020-09-21 13:38:00 Completed [facility] FLUZONE HIGH DOSE OVER 65 FLUZONE HIGH DOSE OVER 65 2020-09-21 13:38:00 Completed [facility] FLUZONE HIGH DOSE OVER 65 FLUZONE HIGH DOSE OVER 65 2020-09-21 13:38:00 Completed [facility] FLUZONE HIGH DOSE OVER 65 FLUZONE HIGH DOSE OVER 65 2020-09-21 13:38:00 Completed [facility] FLUZONE HIGH DOSE OVER 65 FLUZONE HIGH DOSE OVER 65 2020-09-21 13:38:00 Completed [facility] FLUZONE HIGH DOSE OVER 65 FLUZONE HIGH DOSE OVER 65 2020-09-21 13:38:00 Completed [facility] FLUZONE HIGH DOSE OVER 65 FLUZONE HIGH DOSE OVER 65 2020-09-21 13:38:00 Completed [facility] FLUZONE HIGH DOSE OVER 65 FLUZONE HIGH DOSE OVER 65 2020-09-21 13:38:00 Completed [facility] FLUZONE HIGH DOSE OVER 65 FLUZONE HIGH DOSE OVER 65 2020-09-21 13:38:00 Completed [facility] FLUZONE HIGH DOSE OVER 65 FLUZONE HIGH DOSE OVER 65 2020-09-21 13:38:00 Completed [facility] FLUZONE HIGH DOSE OVER 65 FLUZONE HIGH DOSE OVER 65 2020-09-21 13:38:00 Completed [facility] FLUZONE HIGH DOSE OVER 65 FLUZONE HIGH DOSE OVER 65 2020-09-21 13:38:00 Completed [facility] FLUZONE HIGH DOSE OVER 65 FLUZONE HIGH DOSE OVER 65 2020-09-21 13:38:00 Completed [facility] FLUZONE HIGH DOSE OVER 65 FLUZONE HIGH DOSE OVER 65 2020-09-21 13:38:00 Completed [facility] FLUZONE HIGH DOSE OVER 65 FLUZONE HIGH DOSE OVER 65 2020-09-21 13:38:00 Completed [facility] FLUZONE HIGH DOSE OVER 65 FLUZONE HIGH DOSE OVER 65 2020-09-21 13:38:00 Completed [facility] FLUZONE HIGH DOSE OVER 65 FLUZONE HIGH DOSE OVER 65 2020-09-21 13:38:00 Completed [facility] FLUZONE HIGH DOSE OVER 65 FLUZONE HIGH DOSE OVER 65 2020-09-21 13:38:00 Completed [facility] FLUZONE HIGH DOSE OVER 65 FLUZONE HIGH DOSE OVER 65 2019-11-17 10:52:00 Completed [facility] FLUZONE HIGH DOSE OVER 65 FLUZONE HIGH DOSE OVER 65 2019-11-17 10:52:00 Completed [facility] FLUZONE HIGH DOSE OVER 65 FLUZONE HIGH DOSE OVER 65 2019-11-17 10:52:00 Completed [facility] FLUZONE HIGH DOSE OVER 65 FLUZONE HIGH DOSE OVER 65 2019-11-17 10:52:00 Completed [facility] FLUZONE HIGH DOSE OVER 65 FLUZONE HIGH DOSE OVER 65 2019-11-17 10:52:00 Completed [facility] FLUZONE HIGH DOSE OVER 65 FLUZONE HIGH DOSE OVER 65 2019-11-17 10:52:00 Completed [facility] FLUZONE HIGH DOSE OVER 65 FLUZONE HIGH DOSE OVER 65 2019-11-17 10:52:00 Completed [facility] FLUZONE HIGH DOSE OVER 65 FLUZONE HIGH DOSE OVER 65 2019-11-17 10:52:00 Completed [facility] FLUZONE HIGH DOSE OVER 65 FLUZONE HIGH DOSE OVER 65 2019-11-17 10:52:00 Completed [facility] FLUZONE HIGH DOSE OVER 65 FLUZONE HIGH DOSE OVER 65 2019-11-17 10:52:00 Completed [facility] FLUZONE HIGH DOSE OVER 65 FLUZONE HIGH DOSE OVER 65 2019-11-17 10:52:00 Completed [facility] FLUZONE HIGH DOSE OVER 65 FLUZONE HIGH DOSE OVER 65 2019-11-17 10:52:00 Completed [facility] FLUZONE HIGH DOSE OVER 65 FLUZONE HIGH DOSE OVER 65 2019-11-17 10:52:00 Completed [facility] FLUZONE HIGH DOSE OVER 65 FLUZONE HIGH DOSE OVER 65 2019-11-17 10:52:00 Completed [facility] FLUZONE HIGH DOSE OVER 65 FLUZONE HIGH DOSE OVER 65 2019-11-17 10:52:00 Completed [facility] FLUZONE HIGH DOSE OVER 65 FLUZONE HIGH DOSE OVER 65 2019-11-17 10:52:00 Completed [facility] FLUZONE HIGH DOSE OVER 65 FLUZONE HIGH DOSE OVER 65 2019-11-17 10:52:00 Completed [facility] FLUZONE HIGH DOSE OVER 65 FLUZONE HIGH DOSE OVER 65 2019-11-17 10:52:00 Completed [facility] FLUZONE HIGH DOSE OVER 65 FLUZONE HIGH DOSE OVER 65 2019-11-17 10:52:00 Completed [facility] FLUZONE HIGH DOSE OVER 65 FLUZONE HIGH DOSE OVER 65 2019-11-17 10:52:00 Completed [facility] Prevnar 13 -Pneumonia Vaccine Prevnar 13 -Pneumonia Vaccine 2019-11-17 10:51:00 Completed [facility] Prevnar 13 -Pneumonia Vaccine Prevnar 13 -Pneumonia Vaccine 2019-11-17 10:51:00 Completed [facility] Prevnar 13 -Pneumonia Vaccine Prevnar 13 -Pneumonia Vaccine 2019-11-17 10:51:00 Completed [facility] Prevnar 13 -Pneumonia Vaccine Prevnar 13 -Pneumonia Vaccine 2019-11-17 10:51:00 Completed [facility] Prevnar 13 -Pneumonia Vaccine Prevnar 13 -Pneumonia Vaccine 2019-11-17 10:51:00 Completed [facility] Prevnar 13 -Pneumonia Vaccine Prevnar 13 -Pneumonia Vaccine 2019-11-17 10:51:00 Completed [facility] Prevnar 13 -Pneumonia Vaccine Prevnar 13 -Pneumonia Vaccine 2019-11-17 10:51:00 Completed [facility] Prevnar 13 -Pneumonia Vaccine Prevnar 13 -Pneumonia Vaccine 2019-11-17 10:51:00 Completed [facility] Prevnar 13 -Pneumonia Vaccine Prevnar 13 -Pneumonia Vaccine 2019-11-17 10:51:00 Completed [facility] Prevnar 13 -Pneumonia Vaccine Prevnar 13 -Pneumonia Vaccine 2019-11-17 10:51:00 Completed [facility] Prevnar 13 -Pneumonia Vaccine Prevnar 13 -Pneumonia Vaccine 2019-11-17 10:51:00 Completed [facility] Prevnar 13 -Pneumonia Vaccine Prevnar 13 -Pneumonia Vaccine 2019-11-17 10:51:00 Completed [facility] Prevnar 13 -Pneumonia Vaccine Prevnar 13 -Pneumonia Vaccine 2019-11-17 10:51:00 Completed [facility] Prevnar 13 -Pneumonia Vaccine Prevnar 13 -Pneumonia Vaccine 2019-11-17 10:51:00 Completed [facility] Prevnar 13 -Pneumonia Vaccine Prevnar 13 -Pneumonia Vaccine 2019-11-17 10:51:00 Completed [facility] Prevnar 13 -Pneumonia Vaccine Prevnar 13 -Pneumonia Vaccine 2019-11-17 10:51:00 Completed [facility] Prevnar 13 -Pneumonia Vaccine Prevnar 13 -Pneumonia Vaccine 2019-11-17 10:51:00 Completed [facility] Prevnar 13 -Pneumonia Vaccine Prevnar 13 -Pneumonia Vaccine 2019-11-17 10:51:00 Completed [facility] Prevnar 13 -Pneumonia Vaccine Prevnar 13 -Pneumonia Vaccine 2019-11-17 10:51:00 Completed [facility] Prevnar 13 -Pneumonia Vaccine Prevnar 13 -Pneumonia Vaccine 2019-11-17 10:51:00 Completed [facility] Shingrix Shingrix 2019-03-10 15:14:00 Completed [facility] Shingrix Shingrix 2019-03-10 15:14:00 Completed [facility] Shingrix Shingrix 2019-03-10 15:14:00 Completed [facility] Shingrix Shingrix 2019-03-10 15:14:00 Completed [facility] Shingrix Shingrix 2019-03-10 15:14:00 Completed [facility] Shingrix Shingrix 2019-03-10 15:14:00 Completed [facility] Shingrix Shingrix 2019-03-10 15:14:00 Completed [facility] Shingrix Shingrix 2019-03-10 15:14:00 Completed [facility] Shingrix Shingrix 2019-03-10 15:14:00 Completed [facility] Shingrix Shingrix 2019-03-10 15:14:00 Completed [facility] Shingrix Shingrix 2019-03-10 15:14:00 Completed [facility] Shingrix Shingrix 2019-03-10 15:14:00 Completed [facility] Shingrix Shingrix 2019-03-10 15:14:00 [facility] Shingrix Shingrix 2019-03-10 15:14:00 [facility] Shingrix Shingrix 2019-03-10 15:14:00 [facility] Shingrix Shingrix 2019-03-10 15:14:00 [facility] Shingrix Shingrix 2019-03-10 15:14:00 [facility] Shingrix Shingrix 2019-03-10 15:14:00 [facility] Shingrix Shingrix 2019-03-10 15:14:00 [facility] Shingrix Shingrix 2019-03-10 15:14:00 [facility] Shingrix Shingrix 2019-03-10 00:00:00 [facility] Adacel (Tdap) Adacel (Tdap) 2019-01-28 09:45:00 [facility] Adacel (Tdap) Adacel (Tdap) 2019-01-28 09:45:00 [facility] Adacel (Tdap) Adacel (Tdap) 2019-01-28 09:45:00 [facility] Adacel (Tdap) Adacel (Tdap) 2019-01-28 09:45:00 [facility] Adacel (Tdap) Adacel (Tdap) 2019-01-28 09:45:00 [facility] Adacel (Tdap) Adacel (Tdap) 2019-01-28 09:45:00 [facility] Adacel (Tdap) Adacel (Tdap) 2019-01-28 09:45:00 [facility] Adacel (Tdap) Adacel (Tdap) 2019-01-28 09:45:00 [facility] Adacel (Tdap) Adacel (Tdap) 2019-01-28 09:45:00 [facility] Adacel (Tdap) Adacel (Tdap) 2019-01-28 09:45:00 [facility] Adacel (Tdap) Adacel (Tdap) 2019-01-28 09:45:00 [facility] Adacel (Tdap) Adacel (Tdap) 2019-01-28 09:45:00 [facility] Adacel (Tdap) Adacel (Tdap) 2019-01-28 09:45:00 [facility] Adacel (Tdap) Adacel (Tdap) 2019-01-28 09:45:00 [facility] Adacel (Tdap) Adacel (Tdap) 2019-01-28 09:45:00 [facility] Adacel (Tdap) Adacel (Tdap) 2019-01-28 09:45:00 [facility] Adacel (Tdap) Adacel (Tdap) 2019-01-28 09:45:00 [facility] Adacel (Tdap) Adacel (Tdap) 2019-01-28 09:45:00 [facility] Adacel (Tdap) Adacel (Tdap) 2019-01-28 09:45:00 [facility] Adacel (Tdap) Adacel (Tdap) 2019-01-28 09:45:00 [facility] TDAP > 7 Years-Adacel TDAP > 7 Years-Adacel 2019-01-28 00:00:00 [facility]pleted [facility] Twinrix Twinrix 2018-08-16 09:10:00 [facility] Twinrix Twinrix 2018-08-16 09:10:00 [facility] Twinrix Twinrix 2018-08-16 09:10:00 [facility] Twinrix Twinrix 2018-08-16 09:10:00 [facility] Twinrix Twinrix 2018-08-16 09:10:00 [facility] Twinrix Twinrix 2018-08-16 09:10:00 [facility] Twinrix Twinrix 2018-08-16 09:10:00 [facility] Twinrix Twinrix 2018-08-16 09:10:00 [facility] Twinrix Twinrix 2018-08-16 09:10:00 [facility] Twinrix Twinrix 2018-08-16 09:10:00 [facility] Twinrix Twinrix 2018-08-16 09:10:00 [facility] Twinrix Twinrix 2018-08-16 09:10:00 [facility] Twinrix Twinrix 2018-08-16 09:10:00 [facility] Twinrix Twinrix 2018-08-16 09:10:00 [facility] Twinrix Twinrix 2018-08-16 09:10:00 [facility] Twinrix Twinrix 2018-08-16 09:10:00 [facility] Twinrix Twinrix 2018-08-16 09:10:00 [facility] Twinrix Twinrix 2018-08-16 09:10:00 [facility] Twinrix Twinrix 2018-08-16 09:10:00 [facility] Twinrix Twinrix 2018-08-16 09:10:00 Completed [facility] FLUZONE HIGH DOSE OVER 65 FLUZONE HIGH DOSE OVER 65 2018-08-16 09:04:00 Completed [facility] FLUZONE HIGH DOSE OVER 65 FLUZONE HIGH DOSE OVER 65 2018-08-16 09:04:00 Completed [facility] FLUZONE HIGH DOSE OVER 65 FLUZONE HIGH DOSE OVER 65 2018-08-16 09:04:00 Completed [facility] FLUZONE HIGH DOSE OVER 65 FLUZONE HIGH DOSE OVER 65 2018-08-16 09:04:00 Completed [facility] FLUZONE HIGH DOSE OVER 65 FLUZONE HIGH DOSE OVER 65 2018-08-16 09:04:00 Completed [facility] FLUZONE HIGH DOSE OVER 65 FLUZONE HIGH DOSE OVER 65 2018-08-16 09:04:00 Completed [facility] FLUZONE HIGH DOSE OVER 65 FLUZONE HIGH DOSE OVER 65 2018-08-16 09:04:00 Completed [facility] FLUZONE HIGH DOSE OVER 65 FLUZONE HIGH DOSE OVER 65 2018-08-16 09:04:00 Completed [facility] FLUZONE HIGH DOSE OVER 65 FLUZONE HIGH DOSE OVER 65 2018-08-16 09:04:00 Completed [facility] FLUZONE HIGH DOSE OVER 65 FLUZONE HIGH DOSE OVER 65 2018-08-16 09:04:00 Completed [facility] FLUZONE HIGH DOSE OVER 65 FLUZONE HIGH DOSE OVER 65 2018-08-16 09:04:00 Completed [facility] FLUZONE HIGH DOSE OVER 65 FLUZONE HIGH DOSE OVER 65 2018-08-16 09:04:00 Completed [facility] FLUZONE HIGH DOSE OVER 65 FLUZONE HIGH DOSE OVER 65 2018-08-16 09:04:00 Completed [facility] FLUZONE HIGH DOSE OVER 65 FLUZONE HIGH DOSE OVER 65 2018-08-16 09:04:00 Completed [facility] FLUZONE HIGH DOSE OVER 65 FLUZONE HIGH DOSE OVER 65 2018-08-16 09:04:00 Completed [facility] FLUZONE HIGH DOSE OVER 65 FLUZONE HIGH DOSE OVER 65 2018-08-16 09:04:00 Completed [facility] FLUZONE HIGH DOSE OVER 65 FLUZONE HIGH DOSE OVER 65 2018-08-16 09:04:00 Completed [facility] FLUZONE HIGH DOSE OVER 65 FLUZONE HIGH DOSE OVER 65 2018-08-16 09:04:00 Completed [facility] FLUZONE HIGH DOSE OVER 65 FLUZONE HIGH DOSE OVER 65 2018-08-16 09:04:00 Completed [facility] FLUZONE HIGH DOSE OVER 65 FLUZONE HIGH DOSE OVER 65 2018-08-16 09:04:00 Completed [facility] FLUZONE HIGH DOSE OVER 65 FLUZONE HIGH DOSE OVER 65 Unknown Completed [facility] FluAD Quad SD FluAD Quad SD Unknown Completed [facility] FLUZONE HIGH DOSE OVER 65 FLUZONE HIGH DOSE OVER 65 Unknown Completed [facility] FLUZONE HIGH DOSE OVER 65 FLUZONE HIGH DOSE OVER 65 Unknown Completed [facility] Adacel (Tdap) Adacel (Tdap) Unknown Completed [facility] Moderna COVID-19 Vaccine (Low Dose Booster) Moderna COVID-19 Vaccine (Low Dose Booster) Unknown Completed [facility] Shingrix Shingrix Unknown Completed [facility] Shingrix Shingrix Unknown Completed [facility] Twinrix Twinrix Unknown Completed [facility] Prevnar 13 -Pneumonia Vaccine Prevnar 13 -Pneumonia Vaccine Unknown Completed [facility] FLUZONE HIGH DOSE OVER 65 FLUZONE HIGH DOSE OVER 65 Unknown [facility] [place] FluAD Quad SD FluAD Quad SD Unknown Completed [facility] FLUZONE HIGH DOSE OVER 65 FLUZONE HIGH DOSE OVER 65 Unknown Completed [facility] [place] FLUZONE HIGH DOSE OVER 65 FLUZONE HIGH DOSE OVER 65 Unknown Completed [facility] [place] Adacel (Tdap) Adacel (Tdap) Unknown Completed [facility] Moderna COVID-19 Vaccine (Low Dose Booster) Moderna COVID-19 Vaccine (Low Dose Booster) Unknown Completed [facility] [place] Shingrix Shingrix Unknown Completed [facility] Shingrix Shingrix Unknown Completed [facility] Twinrix Twinrix Unknown Completed [facility] Prevnar 13 -Pneumonia Vaccine Prevnar 13 -Pneumonia Vaccine Unknown Completed [facility] [place] FLUZONE HIGH DOSE OVER 65 FLUZONE HIGH DOSE OVER 65 Unknown Completed [facility] [place] FluAD Quad SD FluAD Quad SD Unknown Completed [facility] FLUZONE HIGH DOSE OVER 65 FLUZONE HIGH DOSE OVER 65 Unknown Completed [facility] [place] FLUZONE HIGH DOSE OVER 65 FLUZONE HIGH DOSE OVER 65 Unknown Completed [facility] [place] Adacel (Tdap) Adacel (Tdap) Unknown Completed [facility] Moderna COVID-19 Vaccine (Low Dose Booster) Moderna COVID-19 Vaccine (Low Dose Booster) Unknown Completed [facility] [place] Shingrix Shingrix Unknown Completed [facility] Shingrix Shingrix Unknown Completed [facility] Twinrix Twinrix Unknown Completed [facility] Prevnar 13 -Pneumonia Vaccine Prevnar 13 -Pneumonia Vaccine Unknown Completed [facility] [place] FLUZONE HIGH DOSE OVER 65 FLUZONE HIGH DOSE OVER 65 Unknown Completed [facility] [place] FluAD Quad SD FluAD Quad SD Unknown Completed [facility] FLUZONE HIGH DOSE OVER 65 FLUZONE HIGH DOSE OVER 65 Unknown Completed [facility] [place] FLUZONE HIGH DOSE OVER 65 FLUZONE HIGH DOSE OVER 65 Unknown Completed [facility] [place] Adacel (Tdap) Adacel (Tdap) Unknown Completed [facility] Moderna COVID-19 Vaccine (Low Dose Booster) Moderna COVID-19 Vaccine (Low Dose Booster) Unknown Completed [facility] [place] Shingrix Shingrix Unknown Completed [facility] Shingrix Shingrix Unknown Completed [facility] Twinrix Twinrix Unknown Completed [facility] Prevnar 13 -Pneumonia Vaccine Prevnar 13 -Pneumonia Vaccine Unknown Completed [facility] [place] FLUZONE HIGH DOSE OVER 65 FLUZONE HIGH DOSE OVER 65 Unknown Completed [facility] [place] FluAD Quad SD FluAD Quad SD Unknown Completed [facility] FLUZONE HIGH DOSE OVER 65 FLUZONE HIGH DOSE OVER 65 Unknown Completed [facility] [place] FLUZONE HIGH DOSE OVER 65 FLUZONE HIGH DOSE OVER 65 Unknown Completed [facility] [place] Adacel (Tdap) Adacel (Tdap) Unknown Completed [facility] Moderna COVID-19 Vaccine (Low Dose Booster) Moderna COVID-19 Vaccine (Low Dose Booster) Unknown Completed [facility] [place] Shingrix Shingrix Unknown Completed [facility] Shingrix Shingrix Unknown Completed [facility] Twinrix Twinrix Unknown Completed [facility] Prevnar 13 -Pneumonia Vaccine Prevnar 13 -Pneumonia Vaccine Unknown Completed [facility] [place] FLUZONE HIGH DOSE OVER 65 FLUZONE HIGH DOSE OVER 65 Unknown Completed [facility] [place] FluAD Quad SD FluAD Quad SD Unknown Completed [facility] FLUZONE HIGH DOSE OVER 65 FLUZONE HIGH DOSE OVER 65 Unknown Completed [facility] [place] FLUZONE HIGH DOSE OVER 65 FLUZONE HIGH DOSE OVER 65 Unknown Completed [facility] [place] Adacel (Tdap) Adacel (Tdap) Unknown Completed [facility] Moderna COVID-19 Vaccine (Low Dose Booster) Moderna COVID-19 Vaccine (Low Dose Booster) Unknown Completed [facility] [place] Shingrix Shingrix Unknown Completed [facility] Shingrix Shingrix Unknown Completed [facility] Twinrix Twinrix Unknown Completed [facility] Prevnar 13 -Pneumonia Vaccine Prevnar 13 -Pneumonia Vaccine Unknown Completed [facility] [place] Vital Signs Vital Name Observation Time Observation Value Comments S shilpa height 2023-05-07 08:20:00 65 [in_i] Commo n [facility] weight 2023-05-07 08:20:00 197 [lb_av] Comm on [facility] temperature 2023-05-07 08:20:00 96.9 [degF] Com mon [facility] bmi 2023-05-07 08:20:00 32.78 kg/m2 Comm on [facility] oximetry 2023-05-07 08:20:00 97 % Commo n [facility] respiratory rate 2023-05-07 08:20:00 16 /min [facility] [place] blood pressure systolic 2023-05-07 08:20:00 136 mm[Hg] [facility] blood pressure diastolic 2023-05-07 08:20:00 78 mm[Hg] [facility] height 2023-01-09 10:10:00 65 [in_i] Commo n [facility] weight 2023-01-09 10:10:00 200.0 [lb_av] Co mmon [facility] temperature 2023-01-09 10:10:00 97.1 [degF] Com [facility] bmi 2023-01-09 10:10:00 33.28 kg/m2 Comm on [facility] oximetry 2023-01-09 10:10:00 99 % Commo n [facility] respiratory rate 2023-01-09 10:10:00 18 /min [facility] [place] blood pressure systolic 2023-01-09 10:10:00 130 mm[Hg] Common [facility] blood pressure diastolic 2023-01-09 10:10:00 72 mm[Hg] [facility] height 2023-01-09 10:20:00 65 [in_i] Commo n [facility] weight 2023-01-09 10:20:00 200.0 [lb_av] Co mmon [facility] temperature 2023-01-09 10:20:00 97.1 [degF] Com mon [facility] bmi 2023-01-09 10:20:00 33.28 kg/m2 Comm on [facility] oximetry 2023-01-09 10:20:00 99 % Commo n [facility] respiratory rate 2023-01-09 10:20:00 18 /min Common [facility] blood pressure systolic 2023-01-09 10:20:00 130 mm[Hg] [facility] blood pressure diastolic 2023-01-09 10:20:00 72 mm[Hg] Common [facility] height 2022-09-25 08:20:00 65 [in_i] Commo n [facility] weight 2022-09-25 08:20:00 194 [lb_av] Comm on [facility] temperature 2022-09-25 08:20:00 97.4 [degF] Com [facility] bmi 2022-09-25 08:20:00 32.28 kg/m2 Comm on [facility] oximetry 2022-09-25 08:20:00 95 % Commo n [facility] respiratory rate 2022-09-25 08:20:00 18 /min Common [facility] blood pressure systolic 2022-09-25 08:20:00 138 mm[Hg] Common [facility] blood pressure diastolic 2022-09-25 08:20:00 76 mm[Hg] Common [facility] height 2022-06-25 09:10:00 65 [in_i] Commo n [facility] weight 2022-06-25 09:10:00 188 [lb_av] Comm on [facility] temperature 2022-06-25 09:10:00 97.7 [degF] Com [facility] bmi 2022-06-25 09:10:00 31.28 kg/m2 Comm on [facility] oximetry 2022-06-25 09:10:00 94 % Commo n [facility] respiratory rate 2022-06-25 09:10:00 18 /min [facility] [place] blood pressure systolic 2022-06-25 09:10:00 132 mm[Hg] [facility] blood pressure diastolic 2022-06-25 09:10:00 80 mm[Hg] [facility] height 2022-04-30 08:50:00 66 [in_i] Commo n [facility] weight 2022-04-30 08:50:00 182.6 [facility]lb_av[facility]-30 08:50:00 97.3 [degF] Com [facility] bmi 2022-04-30 08:50:00 29.47 kg/m2 Comm on [facility] oximetry 2022-04-30 08:50:00 98 % Commo n [facility] respiratory rate 2022-04-30 08:50:00 17 /min [facility] [place] blood pressure systolic 2022-04-30 08:50:00 122 mm[Hg] [facility] blood pressure diastolic 2022-04-30 08:50:00 76 mm[Hg] [facility] height 2022-04-02 09:00:00 66 [in_i] Commo n [facility] weight 2022-04-02 09:00:00 182.8 [lb_av] Co [facility] temperature 2022-04-02 09:00:00 97.5 [degF] Com [facility] bmi 2022-04-02 09:00:00 29.5 kg/m2 Commo n [facility] oximetry 2022-04-02 09:00:00 96 % Commo n [facility] respiratory rate 2022-04-02 09:00:00 17 /min Common [facility] blood pressure systolic 2022-04-02 09:00:00 132 mm[Hg] Common [facility] blood pressure diastolic 2022-04-02 09:00:00 73 mm[Hg] Common [facility] height 2022-01-22 08:40:00 66 [in_i] Commo n [facility] weight 2022-01-22 08:40:00 192.8 [lb_av] Co [facility] temperature 2022-01-22 08:40:00 97.2 [degF] Com [facility] bmi 2022-01-22 08:40:00 31.12 kg/m2 Comm on [facility] oximetry 2022-01-22 08:40:00 98 % Commo n [facility] respiratory rate 2022-01-22 08:40:00 16 /min [facility] [place] blood pressure systolic 2022-01-22 08:40:00 124 mm[Hg] Common [facility] blood pressure diastolic 2022-01-22 08:40:00 82 mm[Hg] [facility] height 2022-01-06 09:10:00 66 [in_i] Commo n [facility] weight 2022-01-06 09:10:00 197.1 [lb_av] Co on [facility] temperature 2022-01-06 09:10:00 97.2 [degF] Com [facility] bmi 2022-01-06 09:10:00 31.81 kg/m2 Comm on [facility] oximetry 2022-01-06 09:10:00 98 % Commo n [facility] respiratory rate 2022-01-06 09:10:00 17 /min Common [facility] blood pressure systolic 2022-01-06 09:10:00 136 mm[Hg] Common [facility] blood pressure diastolic 2022-01-06 09:10:00 76 mm[Hg] Common [facility] height 2021-12-09 08:00:00 66 [in_i] Commo n [facility] weight 2021-12-09 08:00:00 194.9 [lb_av] Co mmon [facility] temperature 2021-12-09 08:00:00 97.0 [degF] Com mon [facility] bmi 2021-12-09 08:00:00 31.45 kg/m2 Comm on [facility] oximetry 2021-12-09 08:00:00 99 % Commo n [facility] respiratory rate 2021-12-09 08:00:00 18 /min Common [facility] blood pressure systolic 2021-12-09 08:00:00 132 mm[Hg] Common [facility] blood pressure diastolic 2021-12-09 08:00:00 72 mm[Hg] [facility] height 2021-12-09 08:00:00 66 [in_i] Commo n [facility] weight 2021-12-09 08:00:00 194.9 [lb_av] Co mmon [facility] temperature 2021-12-09 08:00:00 97.0 [degF] Com [facility] bmi 2021-12-09 08:00:00 31.45 kg/m2 Comm on [facility] oximetry 2021-12-09 08:00:00 99 % Commo n [facility] respiratory rate 2021-12-09 08:00:00 18 /min [facility] [place] blood pressure systolic 2021-12-09 08:00:00 132 mm[Hg] Common [facility] blood pressure diastolic 2021-12-09 08:00:00 72 mm[Hg] [facility] height 2021-08-06 08:00:00 66 [in_i] Commo n [facility] weight 2021-08-06 08:00:00 206 [lb_av] Comm on [facility] temperature 2021-08-06 08:00:00 97 [degF] Comm on [facility] bmi 2021-08-06 08:00:00 33.25 kg/m2 Comm on [facility] blood pressure systolic 2021-08-06 08:00:00 127 mm[Hg] [facility] blood pressure diastolic 2021-08-06 08:00:00 76 mm[Hg] [facility] Encounters Start Date/Time End Date/Time Encounter Type Admission Type Attending [facility] Care Department Encounter ID Source 2023-01-07 09:55:00 Outpatient Delgado, Ricardo STLC STLC [id number] [facility] [place] 2022-09-27 07:24:00 Outpatient Delgado, Ricardo STLC STLMLC [id number] [facility] [place] 2022-09-23 10:33:00 Outpatient Delgado, Ricardo STLC STLMLC [id number] [facility] [place] 2022-01-23 08:11:00 Outpatient Delgado, Ricardo STLC STLMLC [id number] [facility] [place] 2022-01-06 08:55:00 Outpatient Delgado, Ricardo STLC STLMLC [id number] [facility] [place] 2021-12-18 14:35:20 Outpatient Delgado, Ricardo STLC STLMLC [id number] [facility] [place] 2021-12-18 13:03:19 Outpatient Delgado, Ricardo STLC STLMLC [id number] [facility] [place] 2021-12-18 11:45:11 Outpatient Delgado, Ricardo STLMLC STLMLC [id number] [facility] [place] 2021-12-18 11:26:20 Outpatient Ricardo Delgado STLMLC STLMLC [id number] [facility] [place] 2023-05-19 00:00:00 2023-05-19 00:00:00 (TEL) STLMLC STLMLC [id number] [facility] [place] 2023-05-07 00:00:00 2023-05-07 00:00:00 OFFICE VISIT ESTAB PT LEVEL 4 STLMLC STLMLC [id number] [facility] [place] 2023-04-16 00:00:00 2023-04-16 00:00:00 (TEL) STLMLC STLMLC [id number] [facility] [place] 2023-02-20 00:00:00 2023-02-20 00:00:00 (TEL) STLMLC STLMLC [id number] [facility] [place] 2023-01-09 00:00:00 2023-01-09 00:00:00 OFFICE VISIT ESTAB PT LEVEL 4 STLMLC STLMLC [id number] [facility] [place] 2023-01-09 00:00:00 2023-01-09 00:00:00 SUB ANNUAL [facility] VISIT STLMLC STLMLC [id number] [facility] [place] 2022-09-25 00:00:00 2022-09-25 00:00:00 OFFICE VISIT ESTAB PT LEVEL 4 STLMLC STLMLC [id number] [facility] [place] 2022-09-25 00:00:00 2022-09-25 00:00:00 (TEL) STLMLC STLMLC [id number] [facility] [place] 2022-09-09 00:00:00 2022-09-09 00:00:00 (TEL) STLMLC STLMLC [id number] [facility] [place] 2022-07-23 00:00:00 2022-07-23 00:00:00 (TEL) STLMLC STLMLC [id number] [facility] [place] 2022-06-25 00:00:00 2022-06-25 00:00:00 OFFICE VISIT ESTAB PT LEVEL 4 STLMLC STLMLC [id number] [facility] [place] 2022-06-04 00:00:00 2022-06-04 00:00:00 (TEL) STLMLC STLMLC [id number] [facility] [place] 2022-04-30 00:00:00 2022-04-30 00:00:00 OFFICE VISIT ESTAB PT LEVEL 4 STLMLC STLMLC [id number] [facility] [place] 2022-04-02 00:00:00 2022-04-02 00:00:00 OFFICE VISIT ESTAB PT LEVEL 4 STLMLC STLMLC [id number] [facility] [place] 2022-03-20 00:00:00 2022-03-20 00:00:00 (TEL) STLMLC STLMLC [id number] [facility] [place] 2022-03-12 00:00:00 2022-03-12 00:00:00 (TEL) STLMLC STLMLC [id number] [facility] [place] 2022-03-12 00:00:00 2022-03-12 00:00:00 (TEL) STLMLC STLMLC [id number] [facility] [place] 2022-02-26 00:00:00 2022-02-26 00:00:00 (TEL) STLMLC STLMLC [id number] [facility] [place] 2022-02-12 00:00:00 2022-02-12 00:00:00 (TEL) STLMLC STLMLC [id number] [facility] [place] 2022-01-30 00:00:00 2022-01-30 00:00:00 (TEL) STLMLC STLMLC [id number] [facility] [place] 2022-01-22 00:00:00 2022-01-22 00:00:00 OFFICE VISIT EST PT LEVEL 3 STLMLC STLMLC [id number] [facility] [place] 2022-01-21 00:00:00 2022-01-21 00:00:00 (TEL) STLMLC STLMLC [id number] [facility] [place] 2022-01-06 00:00:00 2022-01-06 00:00:00 OFFICE VISIT ESTAB PT LEVEL 4 STLMLC STLMLC [id number] [facility] [place] 2021-12-09 00:00:00 2021-12-09 00:00:00 OFFICE VISIT EST PT LEVEL 3 STLMLC STLMLC [id number] [facility] [place] 2021-12-09 00:00:00 2021-12-09 00:00:00 SUB ANNUAL [facility] VISIT STLMLC STLMLC [id number] [facility] [place] 2021-08-06 00:00:00 2021-08-06 00:00:00 (TELEAUD) AUDIO TELEMEDICI NE STLMLC STLMLC [id number] [facility] [place] 2021-04-05 00:00:00 2021-04-05 00:00:00 Outpatient STLMLC STLMLC [id number] [facility] [place] 2020-12-07 00:00:00 2020-12-07 00:00:00 Outpatient STLMLC STLMLC [id number] [facility] [place] 2020-12-07 00:00:00 2020-12-07 00:00:00 Outpatient STLMLC STLMLC [id number] [facility] [place] 2020-12-05 00:00:00 2020-12-05 00:00:00 Outpatient STLMLC STLMLC [id number] [facility] [place] 2020-08-22 00:00:00 2020-08-22 00:00:00 Outpatient STLMLC STLMLC [id number] [facility] [place] 2020-08-21 00:00:00 2020-08-21 00:00:00 Outpatient STLMLC STLMLC [id number] [facility] [place] 2020-08-03 09:40:00 2020-08-03 09:40:00 [place] [facility] [id number] [facility] 2020-05-04 08:45:00 2020-05-04 08:45:[address] [facility] [facility] [id number] [facility] 2020-02-18 08:13:00 2020-02-18 08:13:[address] [facility] [facility] [id number] [facility] 2020-02-03 08:15:00 2020-02-03 08:15:[address] [facility] [id number] [facility] 2019-11-02 08:30:00 2019-11-02 08:30:[address] [facility] [facility] [id number] [facility] 2019-10-26 08:13:00 2019-10-26 08:13:[address] [facility] [id number] [facility] 2019-10-05 11:49:00 2019-10-05 11:49:[address] [facility] [id number] [facility] 2019-10-04 13:15:00 2019-10-04 13:15:[address] [facility] [id number] [facility] 2019-07-29 08:30:00 2019-07-29 08:30:[address] [facility] [id number] [facility] 2019-06-16 15:00:00 2019-06-16 15:00:[address] [facility] [id number] [facility] 2019-06-02 15:00:00 2019-06-02 15:00:[address] [facility] [id number] [facility] 2019-05-12 15:03:00 2019-05-12 15:03:[address] [facility] [id number] [facility] 2019-05-12 14:45:00 2019-05-12 14:45:[address] [facility] [id number] [facility] [place] 2019-03-10 15:14:00 2019-03-10 15:14:[address] [facility] [id number] [facility] [facility] 2019-02-02 10:45:00 2019-02-02 10:45:[address] [facility] [id number] [facility] [place] 2019-01-28 09:30:00 2019-01-28 09:30:[address] [facility] [id number] [facility] [place] 2018-09-01 08:38:00 2018-09-01 08:38:[address] [facility] [id number] [facility] [place] 2018-07-09 08:30:00 2018-07-09 08:30:[address] [facility] [id number] [facility] [place] 2018-04-13 15:52:00 2018-04-13 15:52:[address] [facility] [id number] [facility] 2018-04-09 10:00:00 2018-04-09 10:00:[address] [facility] [id number] [facility] [place] Results Test Description Test Time Test Comments Results Result Co mments Source HEMOGLOBIN [id number] 00:00:00* Test Item Value Reference Range Interpretation Comme nts HEMOGLOBIN A1c (test code = 4548-4) 6.8 % See_Comment H [Automated messa ge] The system which generated this result transmitted reference range: 4.2-5.6 %. The reference range was not used to interpret this result as normal/abnormal. VITAMIN D,1,[id number] 00:00:00* Test Item Value Reference Range Interpretation [facility] VITAMIN D,1,25-DIHYDROXY (test code = 1649-3) 47.4 PG/ML See_Comment [Automated message] The system which generated this result transmitted reference range: 20.0-82.0 PG/ML. The reference range was not used to interpret this result as normal/abnormal. PTH RELATED [id number] 00:00:00* Test Item Value Reference Range Interpretation [facility] PTH RELATED PEPTIDE (test code = 46411-7) <0.4 pmol/L See_Comment [Automated [employer]] The system which generated this result transmitted reference range: < or = 4.2 pmol/L. The reference range was not used to interpret this result as normal/abnormal. LIPID PANEL WITH REFLEX DIRECT [id number] 00:00:00* Test Item Value Reference Range Interpretation [facility] CALC LDL CHOL (test code = 36419-7) 47 MG/DL See_Comment [Automated [employer]] The system which generated this result transmitted reference range: <100 MG/DL. The reference range was not used to interpret this result as normal/abnormal. CHOLESTEROL (test code = 2093-3) 109 MG/DL See_Comment [Automated [employer] ge] The system which generated this result transmitted reference range: <200 MG/DL. The reference range was not used to interpret this result as normal/abnormal. HDL CHOLESTEROL (test code = 2085-9) 33 MG/DL See_Comment L [Automated [employer]] The system which generated this result transmitted reference range: >39 MG/DL. The reference range was not used to interpret this result as normal/abnormal. RISK RATIO LDL/HDL (test code = 19138-3) 1.42 RATIO See_Comment [Automated message] The system which generated this result transmitted reference range: <3.55 RATIO. The reference range was not used to interpret this result as normal/abnormal. TRIGLYCERIDES (test code = 2571-8) 233 MG/DL See_Comment H [Automated [employer]] The system which generated this result transmitted reference range: <150 MG/DL. The reference range was not used to interpret this result as normal/abnormal. PTH, INTACT, WITH CALCIUM, PHOSPHORUS, [id number] 00:00:00* Test Item Value Reference Range Interpretation Comme nts CALCIUM (test code = 36651-9) 10.4 MG/DL See_Comment [Automated [employer] ge] The system which generated this result transmitted reference range: 8.5-10.5 MG/DL. The reference range was not used to interpret this result as normal/abnormal. CREATININE (test code = 2160-0) 1.24 MG/DL See_Comment [Automated messa ge] The system which generated this result transmitted reference range: 0.80-1.40 MG/DL. The reference range was not used to interpret this result as normal/abnormal. eGFR (2020 CKD-EPI) (test code = 15347-5) 63 ML/MIN/1.73 See_Comment [Automated messa ge] The system which generated this result transmitted reference range: >60 ML/MIN/1.73. The reference range was not used to interpret this result as normal/abnormal. INTACT PTH (test code = 2731-8) 14 PG/ML See_Comment L [Automated [employer] ge] The system which generated this result transmitted reference range: 15-65 PG/ML. The reference range was not used to interpret this result as normal/abnormal. PHOSPHORUS (test code = 2777-1) 2.8 MG/DL See_Comment [Automated [employer]] The system which generated this result transmitted reference range: 2.5-4.5 MG/DL. The reference range was not used to interpret this result as normal/abnormal. ALBUMIN/CREATININE RATIO, RANDOM [id number] 00:00:00* Test Item Value Reference Range Interpretation Comme nts ALBUMIN, URINE, RANDOM (test code = 66529-6) 7.0 MG/DL NOT ESTAB MG/DL CALC ALBUMIN/CREAT, RND (test code = 94897-4) 24 MG/G See_Comment [Automated messa ge] The system which generated this result transmitted reference range: <30 MG/G. The reference range was not used to interpret this result as normal/abnormal. CREATININE, URINE, CONC. (test code = 2161-8) 294.8 MG/DL NOT ESTAB MG/DL COMPREHENSIVE METABOLIC [id number] 00:00:00* Test Item Value Reference Range Interpretation Comme nts ALBUMIN (test code = 1751-7) 4.8 G/DL See_Comment [Automated messa ge] The system which generated this result transmitted reference range: 3.5-5.2 G/DL. The reference range was not used to interpret this result as normal/abnormal. ALKALINE PHOSPHATASE (test code = 6768-6) 67 U/L See_Comment [Automated message] The system which generated this result transmitted reference range: 40-125 U/L. The reference range was not used to interpret this result as normal/abnormal. BILIRUBIN, TOTAL (test code = 1975-2) 0.5 MG/DL See_Comment [Automated message] The system which generated this result transmitted reference range: <=1.2 MG/DL. The reference range was not used to interpret this result as normal/abnormal. BUN (test code = 3094-0) 17 MG/DL See_Comment [Automated messa ge] The system which generated this result transmitted reference range: 8-23 MG/DL. The reference range was not used to interpret this result as normal/abnormal. CALCIUM (test code = 93668-9) 10.4 MG/DL See_Comment [Automated messa ge] The system which generated this result transmitted reference range: 8.5-10.5 MG/DL. The reference range was not used to interpret this result as normal/abnormal. CALC A/G RATIO (test code = 1759-0) 1.5 RATIO See_Comment [Automated messa ge] The system which generated this result transmitted reference range: 1.0-2.6 RATIO. The reference range was not used to interpret this result as normal/abnormal. CALC BUN/CREAT (test code = 3097-3) 14 RATIO See_Comment [Automated messa ge] The system which generated this result transmitted reference range: 6-28 RATIO. The reference range was not used to interpret this result as normal/abnormal. CALC GLOBULIN (test code = 45267-5) 3.1 G/DL See_Comment [Automated messa ge] The system which generated this result transmitted reference range: 1.9-3.7 G/DL. The reference range was not used to interpret this result as normal/abnormal. CARBON DIOXIDE (test code = 1963-8) 23 MEQ/L See_Comment [Automated messa ge] The system which generated this result transmitted reference range: 19-31 MEQ/L. The reference range was not used to interpret this result as normal/abnormal. CHLORIDE (test code = 2075-0) 106 MEQ/L See_Comment [Automated messa ge] The system which generated this result transmitted reference range: 95-107 MEQ/L. The reference range was not used to interpret this result as normal/abnormal. CREATININE (test code = 2160-0) 1.24 MG/DL See_Comment [Automated messa ge] The system which generated this result transmitted reference range: 0.80-1.40 MG/DL. The reference range was not used to interpret this result as normal/abnormal. eGFR (2020 CKD-EPI) (test code = 37962-8) 63 ML/MIN/1.73 See_Comment [Automated messa ge] The system which generated this result transmitted reference range: >60 ML/MIN/1.73. The reference range was not used to interpret this result as normal/abnormal. GLUCOSE (test code = 1558-6) 200 MG/DL See_Comment H [Automated messa ge] The system which generated this result transmitted reference range: 70-99 MG/DL. The reference range was not used to interpret this result as normal/abnormal. POTASSIUM (test code = 2823-3) 4.8 MEQ/L See_Comment [Automated messa ge] The system which generated this result transmitted reference range: 3.5-5.4 MEQ/L. The reference range was not used to interpret this result as normal/abnormal. PROTEIN, TOTAL (test code = 2885-2) 7.9 G/DL See_Comment [Automated messa ge] The system which generated this result transmitted reference range: 6.1-8.3 G/DL. The reference range was not used to interpret this result as normal/abnormal. AST (test code = 1920-8) 40 U/L See_Comment [Automated messa ge] The system which generated this result transmitted reference range: 9-50 U/L. The reference range was not used to interpret this result as normal/abnormal. ALT (test code = 1742-6) 51 U/L See_Comment H [Automated messa ge] The system which generated this result transmitted reference range: 5-50 U/L. The reference range was not used to interpret this result as normal/abnormal. SODIUM (test code = 2951-2) 144 MEQ/L See_Comment [Automated messa ge] The system which generated this result transmitted reference range: 133-146 MEQ/L. The reference range was not used to interpret this result as normal/abnormal. CBC W/AUTO [id number] 00:00:00* Test Item Value Reference Range Interpretation Comme nts NUCLEATED RBCS (test code = 85814-5) 0.0 /100 WBC'S See_Comment [Automated messa ge] The system which generated this result transmitted reference range: 0.0 /100 WBC'S. The reference range was not used to interpret this result as normal/abnormal. ABSOLUTE EOSINOPHILS (test code = 66724-3) 0.40 K/UL See_Comment [Automated messa ge] The system which generated this result transmitted reference range: 0.00-0.50 K/UL. The reference range was not used to interpret this result as normal/abnormal. ABSOLUTE LYMPHOCYTES (test code = 84198-3) 2.85 K/UL See_Comment [Automated messa ge] The system which generated this result transmitted reference range: 1.00-4.00 K/UL. The reference range was not used to interpret this result as normal/abnormal. ABSOLUTE MONOCYTES (test code = 74283-9) 0.71 K/UL See_Comment [Automated messa ge] The system which generated this result transmitted reference range: 0.20-1.00 K/UL. The reference range was not used to interpret this result as normal/abnormal. ABSOLUTE NEUTROPHILS (test code = 88139-9) 5.65 K/UL See_Comment [Automated messa ge] The system which generated this result transmitted reference range: 1.50-7.50 K/UL. The reference range was not used to interpret this result as normal/abnormal. BASOPHILS (test code = 90860-0) 0.8 % EOSINOPHILS (test code = 20596-5) 4.1 % HEMATOCRIT (test code = 80203-9) 43.9 % See_Comment [Automated messa ge] The system which generated this result transmitted reference range: 40.0-51.0 %. The reference range was not used to interpret this result as normal/abnormal. HEMOGLOBIN (test code = 718-7) 15.0 G/DL See_Comment [Automated messa ge] The system which generated this result transmitted reference range: 13.5-17.0 G/DL. The reference range was not used to interpret this result as normal/abnormal. LYMPHOCYTES (test code = 96373-7) 29.3 % MCH (test code = 84182-8) 30.8 PG See_Comment [Automated messa ge] The system which generated this result transmitted reference range: 25.0-33.0 PG. The reference range was not used to interpret this result as normal/abnormal. MCHC (test code = 88448-3) 34.2 G/DL See_Comment [Automated messa ge] The system which generated this result transmitted reference range: 31.0-36.0 G/DL. The reference range was not used to interpret this result as normal/abnormal. MCV (test code = 71367-4) 90.1 fL See_Comment [Automated messa ge] The system which generated this result transmitted reference range: 80.0-99.0 fL. The reference range was not used to interpret this result as normal/abnormal. MONOCYTES (test code = 38963-7) 7.3 % NEUTROPHILS (test code = 49396-2) 58.0 % PLATELET COUNT (test code = 88409-2) 254 K/UL See_Comment [Automated messa ge] The system which generated this result transmitted reference range: 130-400 K/UL. The reference range was not used to interpret this result as normal/abnormal. RBC (test code = 40416-9) 4.87 M/UL See_Comment [Automated messa ge] The system which generated this result transmitted reference range: 4.50-6.10 M/UL. The reference range was not used to interpret this result as normal/abnormal. RDW (test code = 51767-3) 13.0 % See_Comment [Automated messa ge] The system which generated this result transmitted reference range: 11.5-15.0 %. The reference range was not used to interpret this result as normal/abnormal. WBC (test code = 15731-2) 9.7 K/UL See_Comment [Automated messa ge] The system which generated this result transmitted reference range: 3.5-11.0 K/UL. The reference range was not used to interpret this result as normal/abnormal. HEMOGLOBIN [id number] 00:00:00* Test Item Value Reference Range Interpretation Comme nts HEMOGLOBIN A1c (test code = 4548-4) 7.5 % See_Comment H [Automated messa ge] The system which generated this result transmitted reference range: 4.2-5.6 %. The reference range was not used to interpret this result as normal/abnormal. LIPID PANEL WITH REFLEX DIRECT [id number] 00:00:00* Test Item Value Reference Range Interpretation Comme [facility] CALC LDL CHOL (test code = 39977-9) 57 MG/DL See_Comment [Automated messa ge] The system which generated this result transmitted reference range: <100 MG/DL. The reference range was not used to interpret this result as normal/abnormal. CHOLESTEROL (test code = 2093-3) 119 MG/DL See_Comment [Automated messa ge] The system which generated this result transmitted reference range: <200 MG/DL. The reference range was not used to interpret this result as normal/abnormal. HDL CHOLESTEROL (test code = 2085-9) 34 MG/DL See_Comment L [Automated messa ge] The system which generated this result transmitted reference range: >39 MG/DL. The reference range was not used to interpret this result as normal/abnormal. RISK RATIO LDL/HDL (test code = 28091-9) 1.68 RATIO See_Comment [Automated message] The system which generated this result transmitted reference range: <3.55 RATIO. The reference range was not used to interpret this result as normal/abnormal. TRIGLYCERIDES (test code = 2571-8) 201 MG/DL See_Comment H [Automated messa ge] The system which generated this result transmitted reference range: <150 MG/DL. The reference range was not used to interpret this result as normal/abnormal. PTH, INTACT, WITH CALCIUM, PHOSPHORUS, [id number] 00:00:00* Test Item Value Reference Range Interpretation Comme [facility] CALCIUM (test code = 64433-3) 10.4 MG/DL See_Comment [Automated messa ge] The system which generated this result transmitted reference range: 8.5-10.5 MG/DL. The reference range was not used to interpret this result as normal/abnormal. CREATININE (test code = 2160-0) 1.29 MG/DL See_Comment [Automated messa ge] The system which generated this result transmitted reference range: 0.80-1.40 MG/DL. The reference range was not used to interpret this result as normal/abnormal. eGFR (2020 CKD-EPI) (test code = 38268-6) 60 ML/MIN/1.73 See_Comment L [Automated messa ge] The system which generated this result transmitted reference range: >60 ML/MIN/1.73. The reference range was not used to interpret this result as normal/abnormal. INTACT PTH (test code = 2731-8) 13 PG/ML See_Comment L [Automated messa ge] The system which generated this result transmitted reference range: 15-65 PG/ML. The reference range was not used to interpret this result as normal/abnormal. PHOSPHORUS (test code = 2777-1) 3.0 MG/DL See_Comment [Automated messa ge] The system which generated this result transmitted reference range: 2.5-4.5 MG/DL. The reference range was not used to interpret this result as normal/abnormal. ALBUMIN/CREATININE RATIO, RANDOM [id number] 00:00:00* Test Item Value Reference Range Interpretation Comme nts ALBUMIN, URINE, RANDOM (test code = 13549-0) 7.0 MG/DL NOT ESTAB MG/DL CALC ALBUMIN/CREAT, RND (test code = 73182-4) 22 MG/G See_Comment [Automated [employer]] The system which generated this result transmitted reference range: <30 MG/G. The reference range was not used to interpret this result as normal/abnormal. CREATININE, URINE, CONC. (test code = 2161-8) 321.4 MG/DL NOT ESTAB MG/DL COMPREHENSIVE METABOLIC [id number] 00:00:00* Test Item Value Reference Range Interpretation Comme nts ALBUMIN (test code = 1751-7) 4.8 G/DL See_Comment [Automated [employer]] The system which generated this result transmitted reference range: 3.5-5.2 G/DL. The reference range was not used to interpret this result as normal/abnormal. ALKALINE PHOSPHATASE (test code = 6768-6) 55 U/L See_Comment [Automated message] The system which generated this result transmitted reference range: 40-125 U/L. The reference range was not used to interpret this result as normal/abnormal. BILIRUBIN, TOTAL (test code = 1975-2) 0.6 MG/DL See_Comment [Automated message] The system which generated this result transmitted reference range: <=1.2 MG/DL. The reference range was not used to interpret this result as normal/abnormal. BUN (test code = 3094-0) 14 MG/DL See_Comment [Automated messa ge] The system which generated this result transmitted reference range: 8-23 MG/DL. The reference range was not used to interpret this result as normal/abnormal. CALCIUM (test code = 75302-1) 10.4 MG/DL See_Comment [Automated messa ge] The system which generated this result transmitted reference range: 8.5-10.5 MG/DL. The reference range was not used to interpret this result as normal/abnormal. CALC A/G RATIO (test code = 1759-0) 1.5 RATIO See_Comment [Automated messa ge] The system which generated this result transmitted reference range: 1.0-2.6 RATIO. The reference range was not used to interpret this result as normal/abnormal. CALC BUN/CREAT (test code = 3097-3) 11 RATIO See_Comment [Automated messa ge] The system which generated this result transmitted reference range: 6-28 RATIO. The reference range was not used to interpret this result as normal/abnormal. CALC GLOBULIN (test code = 55704-2) 3.2 G/DL See_Comment [Automated messa ge] The system which generated this result transmitted reference range: 1.9-3.7 G/DL. The reference range was not used to interpret this result as normal/abnormal. CARBON DIOXIDE (test code = 1963-8) 24 MEQ/L See_Comment [Automated messa ge] The system which generated this result transmitted reference range: 19-31 MEQ/L. The reference range was not used to interpret this result as normal/abnormal. CHLORIDE (test code = 2075-0) 107 MEQ/L See_Comment [Automated messa ge] The system which generated this result transmitted reference range: 95-107 MEQ/L. The reference range was not used to interpret this result as normal/abnormal. CREATININE (test code = 2160-0) 1.29 MG/DL See_Comment [Automated messa ge] The system which generated this result transmitted reference range: 0.80-1.40 MG/DL. The reference range was not used to interpret this result as normal/abnormal. eGFR (2020 CKD-EPI) (test code = 15567-6) 60 ML/MIN/1.73 See_Comment L [Automated messa ge] The system which generated this result transmitted reference range: >60 ML/MIN/1.73. The reference range was not used to interpret this result as normal/abnormal. GLUCOSE (test code = 1558-6) 154 MG/DL See_Comment H [Automated messa ge] The system which generated this result transmitted reference range: 70-99 MG/DL. The reference range was not used to interpret this result as normal/abnormal. POTASSIUM (test code = 2823-3) 4.9 MEQ/L See_Comment [Automated messa ge] The system which generated this result transmitted reference range: 3.5-5.4 MEQ/L. The reference range was not used to interpret this result as normal/abnormal. PROTEIN, TOTAL (test code = 2885-2) 8.0 G/DL See_Comment [Automated messa ge] The system which generated this result transmitted reference range: 6.1-8.3 G/DL. The reference range was not used to interpret this result as normal/abnormal. AST (test code = 1920-8) 39 U/L See_Comment [Automated messa ge] The system which generated this result transmitted reference range: 9-50 U/L. The reference range was not used to interpret this result as normal/abnormal. ALT (test code = 1742-6) 46 U/L See_Comment [Automated messa ge] The system which generated this result transmitted reference range: 5-50 U/L. The reference range was not used to interpret this result as normal/abnormal. SODIUM (test code = 2951-2) 145 MEQ/L See_Comment [Automated messa ge] The system which generated this result transmitted reference range: 133-146 MEQ/L. The reference range was not used to interpret this result as normal/abnormal. Occult Blood, Fecal, [id number] 00:00:00Occult Blood, Fecal, [place]
[2023-11-18 08:57] LABS: Absolute Lymphocytes (CBC) 2.7 K/uL (0.7-4.9); Hematocrit 38.2 % (39.6-49.0); Lymphocytes % 15.8 % (15.3-44.8); MCV 90.9 fL (80-100); MPV 10.3 fL (7.6-11.3); Platelets 183 thou/uL (152-406); RBC Red Blood Cell Count 4.21 M/uL (4.33-5.43)
[2023-11-18 09:14] LABS: Albumin 3.3 g/dL (3.4-5.0); Bilirubin Total 0.9 mg/dL (0.2-1.0); Potassium 3.7 mEq/L (3.5-5.1); Protein, Total 8.1 g/dL (6.4-8.2)
--- NOTE | 2023-11-18 09:36 | RAD REPORT ---
EXAM DESCRIPTION: US - Abdomen Exam Limited - 11/18/2023 9:11 am CLINICAL HISTORY: ABD PAIN COMPARISON: No comparisons TECHNIQUE: Sonographic grayscale and color flow images of the right upper abdominal quadrant were o btained. FINDINGS: The gallbladder a single large gallstone near the neck measuring 2 cm. Other limited layer ing sludge near the fundus. No pericholecystic fluid. Gallbladder wall is thickened, measuring 5 mm. The common bile duct is normal measuring 4 mm. The liver demonstrates no findings of intrahepatic biliary dilatation. IMPRESSION: No gallbladder wall thickening with a single large gallstone near the neck. Findings marr se concern for cholecystitis in the appropriate clinical setting. No intra or extrahepatic biliary ductal dilation.
--- NOTE | 2023-11-18 09:44 | RAD REPORT ---
EXAM DESCRIPTION: CT - Abdomen Pelvis W Contrast - 11/18/2023 9:28 am CLINICAL HISTORY: ABD PAIN COMPARISON: No comparisons TECHNIQUE: Thin cut axial CT imaging of the abdomen and pelvis was performed following intravenous a dministration of 100 mL Isovue 300. Multiplanar reformats were generated and reviewed. All CT scans are performed using dose optimization technique as appropriate and may include automated exposure control or mA/KV adjustment according to patient size. FINDINGS: No suspicious findings in the lung bases. The liver shows diffuse parenchymal hypoattenuation, suggesting steatosis. Spleen, adrenal glands, an d pancreas show no suspicious findings. Gallbladder is markedly distended with wall thickening, hyper emia, and adjacent fat stranding. Cholesterol containing 2.5 cm gallstone at the neck. Symmetric renal function is seen with no hydronephrosis or suspicious renal mass. No dilated bowel loops or bowel wall thickening. Mild colonic diverticulosis. No free air, free fluid or inflammatory stranding. Appendix is within normal limits, although it extends within the sac of a right inguinal hernia. A smaller left inguinal hernia containing fat. No suspicious mass or bulky ly mphadenopathy. The urinary bladder is suboptimally distended limiting evaluation. Mild prostatomegaly . No suspicious bony findings. IMPRESSION: Distention, wall hyperemia, and adjacent fat stranding of the gallbladder, suggesting ac lorelei cholecystitis. Single large gallstone at the neck. Bilateral inguinal hernias. The right inguinal hernia sac contains a normal appearing appendix. Other findings as detailed above.
[2023-11-18] MEDS ORDERED: NA CHLORIDE 0.9% 100 ML ONE (09:46)
[2023-11-18] MEDS ORDERED: PIPERACIL/TAZO 3.375 GM VIAL IV ONE (09:46)
[2023-11-18 10:08] LABS: Urine Bacteria None Seen /HPF (<20); Urine Bilirubin 1+ (Negative); Urine Blood Negative (Negative); Urine Clarity Clear (Clear); Urine Color Yellow (Yellow); Urine Glucose 1+ (Negative); Urine Mucus 3+ /HPF (None Seen); Urine Protein 1+ (Negative); Urine RBC <5 /HPF (None Seen); Urine Urobilinogen 2+ (Normal)
--- NOTE | 2023-11-18 10:08 | EDPHYS ---
Physician Documentation [facility] Name: Carlos Bridges Age: 68 yrs Sex: Male : 1955 Arrival Date: 11/18/2023 Time: 08:11 Bed 13 Private MD: ED Physician Jose D Roque HPI: 11/18 08:58 This 68 yrs old Male presents to ER via Ambulatory with complaints of Fever, rn Low Abd Pain. 08:58 The patient presents with abdominal pain right lower quadrant. rn 08:59 Onset: The symptoms/episode began/occurred 3 day(s) ago. The symptoms do not radiate. rn Associated signs and symptoms: Pertinent negatives: nausea and vomiting, anorexia, blood in stools, chest pain, constipation, diarrhea, dysuria, fever, hematuria, palpitations, shortness of breath, testicular pain, vomiting, vomiting blood. The symptoms are described as crampy. Modifying factors: The symptoms are alleviated by nothing, the symptoms are aggravated by movement, touching the area. Severity of pain: At its worst the pain was moderate in the emergency department the pain is unchanged. The patient has not experienced similar symptoms in the past. The patient has not recently seen a physician. Patient reports 3 days of right lower quadrant and right-sided abdominal pain. Feels achy, worse with movement and palpation. Denies objective fever but reports subjective fever. having problems recently and has been is taking on more physical activity and responsibilities in the house with movement and lifting. Patient concerned that may have injured himself as he heard a pop not too long ago on the right side. No vomiting or diarrhea. No blood in stool. No chest pain. Eating well with good appetite. No history of gallbladder problems. No previous abdominal surgeries.. Historical: - Allergies: 08:19 No Known Allergies; iw - Home Meds: 08:23 fenofibrate oral 145 mg daily [Active]; carvedilol 6.25 mg oral tablet 2 times per day iw [Active]; Janumet XR 100-1,000 mg oral Tablet, ER Multiphase 24 hr daily [Active]; lisinopril 5 mg Oral tablet daily [Active]; amlodipine 5 mg tablet daily [Active]; simvastatin 80 mg Oral tablet daily [Active]; omeprazole 20 mg oral tablet, delayed release (enteric coated) daily [Active]; - PMHx: 08:19 Diabetes mellitus; Hypertensive disorder; hyperlipidemia; Myocardial infarction; iw - PSHx: 08:19 cardiac stent; iw - Immunization history:: Adult Immunizations up to date. - Social history:: Smoking status: Patient/guardian denies using tobacco, the patient reports quitting approximately 11 years ago. - Family history:: not pertinent. - Hospitalizations: : No recent hospitalization is reported. ROS: 08:59 Constitutional: Negative for weight loss Cardiovascular: Negative for chest pain, rn palpitations, and edema, Respiratory: Negative for shortness of breath, cough, wheezing, and pleuritic chest pain, Abdomen/GI: Positive for right-sided abdominal pain MS/Extremity: Negative for injury and deformity, Skin: Negative for injury, rash, and discoloration, Neuro: Negative for headache, weakness, numbness, tingling, and seizure, Exam: 08:59 Constitutional: This is a well developed, well nourished patient who is awake, alert, rn and in no acute distress. Head/Face: Normocephalic, atraumatic. Cardiovascular: Regular rate and rhythm. No pulse deficits. Respiratory: No increased work of breathing, no retractions or nasal flaring. Abdomen/GI: Soft, mild right lower quadrant and right upper quadrant tenderness. Negative Buck. No peritoneal signs. Mild guarding right lower quadrant. No distention. No masses. Skin: Warm, dry MS/ Extremity: Pulses equal, no cyanosis. Neuro: Awake and alert, GCS 15 Vital Signs: 08:20 BP 114 / 85; Pulse 89; Resp 16; Temp 97.9; Pulse Ox 97% on R/A; Weight 89.36 kg; Height iw 5 ft. 6 in. ; Pain 0/10; 12:59 BP 91 / 60; Pulse 74; Resp 15; Pulse Ox 94% on R/A; kd3 15:58 BP 118 / 77; Pulse 85; Resp 16; Pulse Ox 98% on R/A; kd3 17:50 BP 127 / 83; Pulse 88; Resp 18; Pulse Ox 98% on R/A; kd3 08:20 Body Mass Index 31.80 (89.36 kg, 167.64 cm) iw 08:20 Pain Scale: Adult iw MDM: 08:16 Patient medically screened. rn 10:07 Differential diagnosis: appendicitis, cholecystitis, Cholelithiasis, diverticulitis, rn gastritis, non-specific abd pain, pancreatitis, Ureterolithiasis, urinary tract infection. Data reviewed: vital signs, nurses notes, lab test result(s), radiologic studies, CT scan, ultrasound, and as a result, I will admit patient. Consideration of Admission/Observation Patient was admitted/placed on observation. Escalation of care including admission/observation considered. Counseling: I had a detailed discussion with the patient and/or guardian regarding the historical points, exam findings, and any diagnostic results supporting the discharge/admit diagnosis, lab results, radiology results, the need for further work-up and treatment in the hospital. 11:19 Management of patient was discussed with the following: Dispute Resolution Analyst: Discussed case with rn Dr. Mason, will evaluate patient and likely take to the OR tomorrow given patient ate breakfast today.. 11/18 08:40 Order name: CBC with Diff; Complete Time: 09:36 11/18 08:40 Order name: CMP; Complete Time: 09:36 11/18 08:40 Order name: Lipase; Complete Time: 09:37 11/18 08:40 Order name: Urinalysis w/ reflexes; Complete Time: 10:17 11/18 12:56 Order name: CBC with Automated Diff [facility] 11/18 12:56 Order name: CBC with Automated Diff [facility] 11/18 12:56 Order name: Comprehensive Metabolic Panel [facility] 11/18 12:56 Order name: Comprehensive Metabolic Panel [facility] 11/18 12:56 Order name: Lipid Profile [facility] 11/18 12:56 Order name: Lipid Profile [facility] 11/18 12:56 Order name: Protime (+INR) [facility] 11/18 12:56 Order name: Protime (+INR) [facility] 11/18 12:56 Order name: PTT, Activated Partial Thromb [facility] 11/18 12:56 Order name: PTT, Activated Partial Thromb [facility] 11/18 12:56 Order name: Troponin High Sensitivity [facility] 11/18 12:56 Order name: Troponin High Sensitivity [facility] 11/18 12:56 Order name: Troponin High Sensitivity [facility] 11/18 08:40 Order name: CT Abd/Pelvis - IV Contrast Only; Complete Time: 09:50 11/18 08:40 Order name: US Abdomen Limited; Complete Time: 09:37 11/18 12:56 Order name: CONS Physician Consult [facility] 11/18 08:40 Order name: IV Saline Lock; Complete Time: 08:52 11/18 08:40 Order name: Labs collected and sent; Complete Time: 08:52 11/18 10:08 Order name: NPO; Complete Time: 10:18 rn Administered Medications: 09:58 Drug: Piperacillin-Tazobactam IVPB 3.375 grams IVPB once over 60 mins; (mix in NS 100 kd3 mL) Route: IVPB; Infused Over: 60 mins; Site: left antecubital; 13:01 Follow up: IV Status: Completed infusion; IV Intake: 100ml kd3 10:49 Drug: morphine IVP or IV 2 mg IVP once over 4 mins Route: IVP; Infused Over: 4 mins; kd3 Site: left antecubital; 13:01 Follow up: Response: No adverse reaction; Pain is decreased kd3 10:49 Drug: Ondansetron IVP 4 mg IVP once; over 2 minutes Route: IVP; Site: left antecubital; kd3 13:01 Follow up: Response: No adverse reaction kd3 Disposition Summary: 11/18/23 10:07 Hospitalization Ordered Notes: Hospitalization Status: Inpatient Admission rn Condition: Stable rn Problem: new rn Symptoms: have improved rn Bed/Room Type: Standard rn Location: Telemetry/MedSurg (Inpatient)(11/18/23 15:43) [facility] Room Assignment: [facility](11/18/23 15:43) [facility] Provider: Mohamud Boyd(11/18/23 17:10) rn Diagnosis - Acute cholecystitis rn Forms: - Medication Reconciliation Form rn - SBAR form rn - Leadership Thank You Letter rn Signatures: Dispatcher [employer] EDMS Sonia Boone RN RN iw Jose D Roque MD MD rn Doucette, Kyli, RN RN rebecca3 Mona Collado RN RN Marita Rivera [facility] Corrections: (The following items were deleted from the chart) 14:05 10:07 Telemetry/MedSurg (Inpatient) rn kb3 14:05 10:07 rn kb3 15:43 14:05 [facility] ER HOLD kb3 mc5 15:43 14:05 ERHOLD- kb3 5 17:10 10:07 Hermann Schmidt rn rn
--- NOTE | 2023-11-18 10:08 | ER ---
Nurse's Notes [facility] Name: Carlos Bridges Age: 68 yrs Sex: Male : 1955 Arrival Date: 11/18/2023 Time: 08:11 Bed 13 Private MD: Diagnosis: Acute cholecystitis Presentation: 11/18 08:21 Chief complaint: Patient states: RLQ pain since Thursday, tender to palpation, feels like iw a ball inside, was running fever yesterday and day before , + nausea, no vomiting or diarrhea. Coronavirus screen: At this time, the client does not indicate any symptoms associated with coronavirus-19. Ebola Screen: Patient negative for fever greater than or equal to 101.5 degrees Fahrenheit, and additional compatible Ebola Virus Disease symptoms Patient denies exposure to infectious person. Patient denies travel to an Ebola-affected area in the 21 days before illness onset. No symptoms or risks identified at this time. Initial Sepsis Screen: Does the patient meet any 2 criteria? No. Patient's initial sepsis screen is negative. Does the patient have a suspected source of infection? No. Patient's initial sepsis screen is negative. Risk Assessment: Do you want to hurt yourself or someone else? Patient reports no desire to harm self or others. 08:21 Acuity: BROOK 3 iw 08:21 Method Of Arrival: Ambulatory iw 15:58 Onset of symptoms was November 18, 2023. kd3 Historical: - Allergies: 08:19 No Known Allergies; iw - Home Meds: 08:23 fenofibrate oral 145 mg daily [Active]; carvedilol 6.25 mg oral tablet 2 times per day iw [Active]; Janumet XR 100-1,000 mg oral Tablet, ER Multiphase 24 hr daily [Active]; lisinopril 5 mg Oral tablet daily [Active]; amlodipine 5 mg tablet daily [Active]; simvastatin 80 mg Oral tablet daily [Active]; omeprazole 20 mg oral tablet, delayed release (enteric coated) daily [Active]; - PMHx: 08:19 Diabetes mellitus; Hypertensive disorder; hyperlipidemia; Myocardial infarction; iw - PSHx: 08:19 cardiac stent; iw - Immunization history:: Adult Immunizations up to date. - Social history:: Smoking status: Patient/guardian denies using tobacco, the patient reports quitting approximately 11 years ago. - Family history:: not pertinent. - Hospitalizations: : No recent hospitalization is reported. Screenin:58 [facility] ED Fall Risk Assessment (Adult) History of falling in the last 3 months, kd3 including since admission No falls in past 3 months (0 pts) Confusion or Disorientation No (0 pts) Intoxicated or Sedated No (0 pts) Impaired Gait No (0 pts) Mobility Assist Device Used No (0 pt) Altered Elimination No (0 pt) Score/Fall Risk Level 0 - 2 = Low Risk Oriented to surroundings. Abuse screen: Denies threats or abuse. Denies injuries from another. Nutritional screening: No deficits noted. Tuberculosis screening: No symptoms or risk factors identified. Assessment: 09:58 General: Appears in no apparent distress. Behavior is calm, cooperative. Pain: kd3 Complains of pain in abdomen. Neuro: Level of Consciousness is awake, alert, obeys commands, Oriented to person, place, time, situation. Cardiovascular: Patient's skin is warm and dry. Respiratory: Airway is patent Trachea midline Respiratory effort is even, unlabored, Respiratory pattern is regular, symmetrical. 13:01 Reassessment: No changes from previously documented assessment. Patient and/or family kd3 updated on plan of care and expected duration. Pain level reassessed. Patient is alert, oriented x 3, equal unlabored respirations, skin warm/dry/pink. Vital Signs: 08:20 BP 114 / 85; Pulse 89; Resp 16; Temp 97.9; Pulse Ox 97% on R/A; Weight 89.36 kg; Height iw 5 ft. 6 in. ; Pain 0/10; 12:59 BP 91 / 60; Pulse 74; Resp 15; Pulse Ox 94% on R/A; kd3 15:58 BP 118 / 77; Pulse 85; Resp 16; Pulse Ox 98% on R/A; kd3 17:50 BP 127 / 83; Pulse 88; Resp 18; Pulse Ox 98% on R/A; kd3 08:20 Body Mass Index 31.80 (89.36 kg, 167.64 cm) iw 08:20 Pain Scale: Adult iw ED Course: 08:13 Patient arrived in ED. mg5 08:16 Jose D Roque MD is Attending Physician. rn 08:22 Triage completed. iw 08:25 Arm band placed on. iw 08:53 Inserted saline lock: 22 gauge in left antecubital area, using aseptic technique. Blood ds4 collected. 08:58 Aileen Haro, RN is Primary Nurse. kd3 09:13 US Abdomen Limited In Process Unspecified. EDMS 09:30 CT Abd/Pelvis - IV Contrast Only In Process Unspecified. EDMS 09:58 Urinalysis w/ reflexes Sent. kd3 10:07 Hermann Schmidt is Hospitalizing Provider. rn 15:59 Patient has correct armband on for positive identification. Provided Education on: . kd3 17:10 Mohamud Boyd MD is Hospitalizing Provider. rn Administered Medications: 09:58 Drug: Piperacillin-Tazobactam IVPB 3.375 grams IVPB once over 60 mins; (mix in NS 100 kd3 mL) Route: IVPB; Infused Over: 60 mins; Site: left antecubital; 13:01 Follow up: IV Status: Completed infusion; IV Intake: 100ml kd3 10:49 Drug: morphine IVP or IV 2 mg IVP once over 4 mins Route: IVP; Infused Over: 4 mins; kd3 Site: left antecubital; 13:01 Follow up: Response: No adverse reaction; Pain is decreased kd3 10:49 Drug: Ondansetron IVP 4 mg IVP once; over 2 minutes Route: IVP; Site: left antecubital; kd3 13:01 Follow up: Response: No adverse reaction kd3 Medication: 15:58 VIS not applicable for this client. kd3 Intake: 13:01 IV: 100ml; Total: 100ml. kd3 Outcome: 10:07 Decision to Hospitalize by Provider. rn 18:31 Patient left the ED. cm10 Signatures: Dispatcher [employer] EDMS Sonia Boone RN RN iw Nieto, Roman, MD MD rn Swanson, Donovan ds4 Aileen Haro RN RN kd3 Geraldine Dominguez RN RN cm10 Arlin Parker mg5
[2023-11-18 10:09] LABS: Specific Gravity ND (1.005-1.030)
[2023-11-18] MEDS ORDERED: MORPHINE 2 MG/ML SYR ONE (10:44)
[2023-11-18] MEDS ORDERED: ONDANSETRON 4 MG/2 ML VIAL ONE (10:44)
--- NOTE | 2023-11-18 12:50 | P.HP ---
Certification for Inpatient Patient admitted to: Inpatient With expected LOS: >2 Midnights Patient will require the following post-hospital care: None Practitioner: I am a practitioner with admitting privileges, knowledge of patient current condition, hospital course, and medical plan of care. Services: Services provided to patient in accordance with Admission requirements found in Title 42 Section 412.3 of the Code of Federal Regulations Patient History Date of Service: 11/18/23 Reason for admission: Acute cholecystitis History of Present Illness: Patient is a 68-year-old gentleman with a history of coronary artery disease with stent placement who comes into the hospital with acute cholecystitis. Patient been having right upper quadrant abdominal pain since earlier today. Occurred about an hour after he ate. Patient has some nausea but no vomiting. Patient denies any other complaints. He is feeling better at this time after given morphine and antibiotics. Patient is admitted with multiple risk factors for CAD. Patient had a prior stents. He has a history of hypertension, diabetes, dyslipidemia, and prior tobacco use. Patient had a stress test in April which did not reveal any abnormalities. Patient used to see Dr. Soto. At this time, patient's CT scan showing acute cholecystitis with a 2.5 cm gallbladder stone. Patient continue with IV antibiotics and pain control. - Past Medical/Surgical History -: Coronary artery disease -: Cardiac catheterization with stent placement - Family History Father Medical History: Stroke - Social History Smoking Status: Former smoker (Patient smoked 4 packs a week) Alcohol use: No CD- Drugs: No Review of Systems 10-point ROS is otherwise unremarkable Physical Examination - Vital Signs Temperature: 98 F Blood Pressure: 140/80 Pulse: 80 Respirations: 18 Pulse Ox (%): 95 - Physical Exam General: Alert, In no apparent distress, Oriented x3 HEENT: Atraumatic, PERRLA, Mucous membr. moist/pink, EOMI, Sclerae nonicteric Neck: Supple, 2+ carotid pulse no bruit, No LAD, Without JVD or thyroid a bnormality Respiratory: Clear to auscultation bilaterally, Normal air movement Cardiovascular: Regular rate/rhythm, Normal S1 S2, No murmurs Gastrointestinal: Normal bowel sounds, Soft and benign, Non-distended, No rebound, No guarding, Tenderness Musculoskeletal: No clubbing, No swelling, No tenderness Integumentary: No rashes Neurological: Normal gait, Normal speech, Normal strength at 5/5 x4 extr, Normal tone, Sensation intact, Cranial nerves 3-12 intact, Normal affect Lymphatics: No axilla or inguinal lymphadenopathy - Studies Laboratory Data (last 24 hrs) 11/18/23 11/18/23 08:50 08:50 WBC 17.30 H Hgb 13.3 L Hct 38.2 L Plt Count 183 Sodium 136 Potassium 3.7 BUN 20 H Creatinine 1.27 Glucose 210 H Total Bilirubin 0.9 AST 22 ALT 37 Alkaline Phosphatase 51 Lipase 56 Assessment & Plan - Problems (Diagnosis) (1) Acute cholecystitis Current Visit: Yes Status: Acute (2) Presence of stent in coronary artery in patient with coronary artery disease Current Visit: Yes Status: Acute (3) Diabetes Current Visit: Yes Status: Acute (4) HTN (hypertension) Current Visit: Yes Status: Acute (5) Dyslipidemia Current Visit: Yes Status: Acute (6) Tobacco abuse Current Visit: Yes Status: Acute - Plan -IV antibiotics -IV fluids -Surgery consultation -CBC, CMP, lipase, stool cultures -N.p.o. -Repeat abdominal film -NG tube -Antiemetics -cardiac clearance Discharge Plan: Home Plan to discharge in: Greater than 2 days - Advance Directives Does patient have a Living Will: No Does patient have a Durable POA for Healthcare: No - Code Status/Comfort Care Code Status Assessed: Yes Code Status: Full Code Critical Care: No Time Spent Managing PTS Care (In Minutes): 45
[2023-11-18] MEDS ORDERED: ONDANSETRON 4 MG/2 ML VIAL IV PRN (12:51)
[2023-11-18] MEDS ORDERED: ACETAMINOPHEN 500 MG TAB PO PRN (12:51)
[2023-11-18] MEDS ORDERED: ENOXAPARIN 40 MG/0.4 ML SQ SCH (17:00)
[2023-11-18] MEDS: NA CHLORIDE 0.9% 1,000 ML IV SCH ×2 (21:02→23:00)
[2023-11-18] MEDS: PIPER TAZO 3.375 GM in NA CHLORIDE 0.9% 100 ML IV SCH (21:03)
[2023-11-18] MEDS: ATORVASTATIN 40 MG TAB PO SCH (21:05)
[2023-11-18] MEDS: MORPHINE 2 MG/ML SYR IV PRN (21:20)
[2023-11-18 21:41] VITALS: BMI 31.8
[2023-11-19] MEDS: PIPER TAZO 3.375 GM in NA CHLORIDE 0.9% 100 ML IV SCH ×3 (04:10→16:56)
[2023-11-19 04:24] LABS: Absolute Lymphocytes (CBC) 2.6 K/uL (0.7-4.9); Lymphocytes % 21.5 % (15.3-44.8); MCV 90.6 fL (80-100); MPV 10.1 fL (7.6-11.3); Platelets 202 thou/uL (152-406); RBC Red Blood Cell Count 4.08 M/uL (4.33-5.43)
[2023-11-19 04:30] LABS: Protime INR 1.45
[2023-11-19 04:42] LABS: Albumin 3.2 g/dL (3.4-5.0); Bilirubin Total 0.8 mg/dL (0.2-1.0); Potassium 3.5 mEq/L (3.5-5.1)
--- NOTE | 2023-11-19 07:18 | P.PN ---
Subjective Date of Service: 11/19/23 Chief Complaint: Acute cholecystitis No issues overnight. He reports right upper quadrant pain. He denies any nausea, vomiting, or diarrhea. He has been NPO for cholecystectomy today. Review of Systems 10-point ROS is otherwise unremarkable Gastrointestinal: Abdominal Pain Physical Examination - Vital Signs Temperature: 98.0 F Blood Pressure: 135/89 Pulse: 85 Respirations: 18 Pulse Ox (%): 93 - Physical Exam General: Alert, In no apparent distress, Oriented x3 HEENT: Atraumatic, Sclerae nonicteric Neck: JVD not distended Respiratory: Clear to auscultation bilaterally, Normal air movement Cardiovascular: No edema, Regular rate/rhythm, Normal S1 S2, No gallops, No rubs, No murmurs Gastrointestinal: Normal bowel sounds, Soft and benign, Non-distended, No rebound, No guarding, Tenderness (right upper quadrant) Musculoskeletal: No clubbing Integumentary: No rashes Neurological: Normal speech, Normal affect - Studies Laboratory Data (last 24 hrs) 11/18/23 11/18/23 08:50 08:50 WBC 17.30 H Hgb 13.3 L Hct 38.2 L Plt Count 183 Sodium 136 Potassium 3.7 BUN 20 H Creatinine 1.27 Glucose 210 H Total Bilirubin 0.9 AST 22 ALT 37 Alkaline Phosphatase 51 Lipase 56 Assessment And Plan - Plan # Acute Cholecystitis with Cholelithiasis - US abdomen = "no gallbladder wall thickening with a single large gallstone near the neck. Findings raise concern for cholecystitis in the appropriate clinical setting. No intra or extrahepatic biliary ductal dilation." - General Surgery consulted - recommendations appreciated - Plan for cholecystectomy today - Continue Piperacillin-Tazobactam - Normal Saline at 100 mL/hr - As needed pain control # Coronary Artery Disease s/p PCI # Hypertension # Dyslipidemia - Continue home atorvastatin - Discontinue aspirin in anticipation for surgery # Type II Diabetes Mellitus - Correction scale insulin # Tobacco Use Disorder - Smoking cessation counseling Casey Boyd M.D.
[2023-11-19] MEDS: NA CHLORIDE 0.9% 1,000 ML IV SCH (09:41)
[2023-11-19] MEDS ORDERED: ROCURONIUM 50 MG/5 ML VIAL IV ONE (16:43)
[2023-11-19] MEDS ORDERED: LIDOCAINE 2% MPF 5 ML VIAL ONE (16:43)
[2023-11-19] MEDS ORDERED: propofoL 200 MG/20 ML VIAL IV ONE (16:43)
[2023-11-19] MEDS ORDERED: MIDAZOLAM HCL 2 MG/2 ML INJ ONE (16:44)
[2023-11-19] MEDS ORDERED: FENTANYL CITR 100 MCG/2 ML ONE (16:44)
[2023-11-19] MEDS ORDERED: SUCCINYLCHOLINE 20 MG/ML (10 ML) IV ONE (16:58)
[2023-11-19] MEDS: BUPIVACAINE 0.25% PF 30 ML VIAL ONE ×2 (17:24→17:33)
[2023-11-19] MEDS ORDERED: Phenylephrine HCl 10 MG/ML 1 ML VIAL ONE (17:25)
[2023-11-19] MEDS ORDERED: NS 0.9% VIAL 10 ML ONE ×2 (17:27→17:28)
[2023-11-19] MEDS ORDERED: SUGAMMADEX SODIUM 200 MG/2 ML VIAL IV ONE (18:10)
[2023-11-19] MEDS ORDERED: ONDANSETRON 4 MG/2 ML VIAL ONE (18:14)
--- NOTE | 2023-11-19 18:32 | P.OP ---
Preoperative diagnosis: Acute Calculous Cholecystitis Postoperative diagnosis: Acute Calculous Cholecystitis Primary procedure: Lapararoscopic Cholecystectomy with ICG Cholangiography Anesthesia: GETA + Local Estimated blood loss: 30cc Specimen: Gallbladder Findings: Acute Calculous Cholecystits, short cystic duct, accessory cystic artery Complications: None Implants: Carline Hemostatic Matrix Powder Transferred to: Recovery Room Condition: Good
[2023-11-19] MEDS: HYDROMORPHONE HCL 1 MG/ML INJ ONE ×4 (19:05→19:20)
[2023-11-19] MEDS: ATORVASTATIN 40 MG TAB PO SCH (21:13)
[2023-11-20] MEDS: PIPER TAZO 3.375 GM in NA CHLORIDE 0.9% 100 ML IV SCH ×3 (00:26→16:16)
[2023-11-20] MEDS: NA CHLORIDE 0.9% 1,000 ML IV SCH ×4 (00:28→20:31)
[2023-11-20] MEDS: MORPHINE 2 MG/ML SYR IV PRN (00:32)
--- NOTE | 2023-11-20 01:04 | OP ---
Date of Procedure: 11/19/2023 Surgeon: Kurt Mason MD, Preoperative Diagnosis: Acute calculous cholecystitis. Postoperative Diagnosis: Acute calculous cholecystitis. Procedure Performed: Laparoscopic cholecystectomy with indocyanine green cholangiography. Anesthesia: General endotracheal plus local with 0.25% Marcaine. Estimated Blood Loss: Less than 30 cc. Specimen: Gallbladder. Findings: 1.Acute calculous cholecystitis. 2.Encasement of the gallbladder by omentum. 3.Adhesions between duodenum and the gallbladder. 4.Accessory branches of cystic artery with an anterior and posterior branch. Complications: None. Implants: Carline hemostatic matrix powder. The patient was transferred to recovery room in good condition. Procedure In Detail: After informed consent was obtained, the patient was brought to the operating r oom and prepped and draped in the usual sterile fashion after adequate anesthesia was achieved. I an esthetized an area in the supraumbilical position down to subcutaneous tissues. A 5 mm 0-degree opti jamal trocar was introduced in the abdomen without incident or complication. Insufflation was obtained to 15 mmHg at this time. There was no injury to vital structures upon entering the abdomen. Three additional trocars were placed, one in the epigastrium, one in the right upper quadrant, one in the r ight mid abdomen. All these were similarly anesthetized and sharply incised and 5 mm trocar was plac ed under direct visualization without incident or complication. The umbilical trocar was then upsize d to 12 mm under direct visualization without incident or complication. Inspection of the abdomen di d note that there was an umbilical hernia inferior from the insertion site of the supraumbilical troc ar. At this point, I turned my attention to the right upper quadrant. The patient was positioned he ad up right-side up position. Ratcheted graspers were used to grasp the patient's omentum, which was completely encased in the gallbladder and firmly adhered to it. A combination of electrocautery and blunt dissection allowed for visualization of the gallbladder, which had a thick inflammatory rind o george the anterior surface with evidence of gangrenous changes. The gallbladder could not be grasped a nd as such, a decompression needle was brought in, used to decompress the needle the gallb ladder and had hydropic type appearance with wall changes consistent with early possible gangrenous c hanges, in addition to the cholecystitis. As I dissected down after decompressing the gallbladder, I was able to grasp the gallbladder after decompression and continued to move down removing the signif icant inflammatory tissue off the anterior surface of the gallbladder including the duodenum. At thi s point, I encircled 2 structures, which were identified as both the cystic duct and cystic artery. The cystic artery had both anterior and posterior branch and a very short course from the intrahepati c course and as such, I double clipped the cystic duct and the cystic artery, which had anterior and posterior branch. Cystic duct was a single branch, however, is quite short. Indocyanine green chola ngiography was used at this point to confirm the anatomy. The common duct junction was appreciated a nd it was not involved in the clipping of the cystic duct, however, it was a very short cystic duct v isualized at this time. I therefore cut the cystic duct between the clips as described as well as th e anterior and posterior branch of cystic artery. At this point, the gallbladder was removed from th e hepatic fossa without incident or complication. Hemostasis was required with some fulguration of t he liver bed required throughout the procedure. The gallbladder was then placed in an EndoCatch bag and removed through the umbilical trocar and sent off for pathologic examination. The abdomen was co piously irrigated at this point. No additional hemostat was required and as such, I sprayed Carline h emostatic matrix powder into the hepatic fossa and inspected the clips, found to be in good anatomic position. ICG cholangiography did not show any leakage of bile or blood at the end of the procedure. The powder remained white for approximately 3 minutes in observation. The patient positioned back in neutral position. The remaining effluent was suctioned out and the umbilical trocar site was clos ed using a Rikki-Jayshree suture passer with 0 Vicryl in an interrupted fashion with good approximat ion of tissues. The abdomen was completely desufflated under direct visualization without incident o r complication. Remaining trocars were removed. All skin incisions were then copiously irrigated an d closed with interrupted brisa and a sterile dressing placed over top. The patient tolerated the procedure well without incident or complication, transferred to PACU in good condition. All counts w ere correct at the end of the case. TK/MODL Voice ID: [id number] Report ID: [id number]
[2023-11-20 02:31] LABS: Absolute Lymphocytes (CBC) 1.8 K/uL (0.7-4.9); Hematocrit 34.3 % (39.6-49.0); Lymphocytes % 17.9 % (15.3-44.8); MCV 90.7 fL (80-100); MPV 9.5 fL (7.6-11.3); Platelets 203 thou/uL (152-406); RBC Red Blood Cell Count 3.78 M/uL (4.33-5.43)
[2023-11-20 02:52] LABS: Albumin 2.9 g/dL (3.4-5.0); Bilirubin Direct 0.4 mg/dL (0-0.2); Bilirubin Indirect, Calculated 0.4 mg/dL (0.2-0.8); Bilirubin Total 0.8 mg/dL (0.2-1.0); Magnesium 1.5 mg/dL (1.6-2.4); Potassium 3.5 mEq/L (3.5-5.1); Protein, Total 7.5 g/dL (6.4-8.2)
[2023-11-20] MEDS: HYDROCODONE/APAP 5/325 MG TAB PO PRN ×4 (03:30→17:45)
[2023-11-20] MEDS ORDERED: ASPIRIN EC 81 MG TAB PO SCH (09:00)
[2023-11-20] MEDS: FAMOTIDINE 20 MG/2 ML VIAL IV PRN (14:51)
--- NOTE | 2023-11-20 15:02 | P.PN ---
Subjective Date of Service: 11/20/23 Chief Complaint: Acute cholecystitis POD # 1 from laparoscopic cholecystectomy with indocyanine green cholangiography. He tolerated the procedure well. This morning, he spiked a temperature to 100.1 F. He states that his pain is well-controlled. He denies any nausea or vomiting. He has been passing flatus, but no bowel movement post- operatively yet. Review of Systems 10-point ROS is otherwise unremarkable General: Fever (low-grade) Gastrointestinal: Abdominal Pain (minimal) Physical Examination - Vital Signs Temperature: 99.4 F Blood Pressure: 129/74 Pulse: 106 Respirations: 18 Pulse Ox (%): 99 - Physical Exam General: Alert, In no apparent distress, Oriented x3 HEENT: Atraumatic, Mucous membr. moist/pink, Sclerae nonicteric Neck: JVD not distended Respiratory: Clear to auscultation bilaterally, Normal air movement Cardiovascular: No edema, Regular rate/rhythm, No murmurs Gastrointestinal: Normal bowel sounds, Soft and benign, Non-distended, No rebound, No guarding, Other (surgical site is covered in clean dressing), Tenderness (near surgical site) Musculoskeletal: No clubbing Integumentary: No rashes Neurological: Normal speech, Normal affect Assessment And Plan - Plan # Acute Cholecystitis with Cholelithiasis - US abdomen = "no gallbladder wall thickening with a single large gallstone near the neck. Findings raise concern for cholecystitis in the appropriate clinical setting. No intra or extrahepatic biliary ductal dilation." - General Surgery consulted and spoke with Dr. Mason - recommendations appreciated - S/P laparoscopic cholecystectomy with indocyanine green cholangiography on 11/19/23 - Continue Piperacillin-Tazobactam - Normal Saline at 100 mL/hr - As needed pain control # Coronary Artery Disease s/p PCI # Hypertension # Dyslipidemia - Continue home atorvastatin - Discontinue aspirin in anticipation for surgery # Type II Diabetes Mellitus - Correction scale insulin # Tobacco Use Disorder - Smoking cessation counseling Casey Boyd M.D.
--- NOTE | 2023-11-20 15:29 | EKG ---
Test Date: 2023-11-19 Test Time: 17:04:59 Emergency Room Registered Nurse: QUAN MEASUREMENT RESULTS: Intervals: Rate: 83 WV: 150 QRSD: 82 QT: 368 QTc: 432 [place]: P: 27 WV: 150 QRS: 6 T: 23 INTERPRETIVE STATEMENTS: Normal sinus rhythm Normal ECG Compared to ECG 05/09/2011 09:59:29 ST (T wave) deviation no longer present Myocardial infarct finding no longer present Electronically Signed On 11-20-23 15:27:18 [employer] by Mauricio Duval
[2023-11-20] MEDS ORDERED: Magnesium Sulfate 2gm IVPB 2 G/50 ML BAG IV ONE (16:17)
[2023-11-20] MEDS ORDERED: D50W 25 GM/50 ML SYRINGE IV PRN (17:22)
[2023-11-20] MEDS ORDERED: GLUCAGON 1 MG/VIAL IM PRN (17:22)
[2023-11-20] MEDS ORDERED: D10W 125 ML IV PRN (17:31)
[2023-11-20] MEDS: INSULIN REGULAR (HUMAN) 100 UNIT/ML SQ SCH ×2 (17:40→21:00)
[2023-11-20] MEDS: ATORVASTATIN 40 MG TAB PO SCH (20:32)
[2023-11-21] MEDS: HYDROCODONE/APAP 5/325 MG TAB PO PRN ×3 (01:25→21:56)
[2023-11-21] MEDS: PIPER TAZO 3.375 GM in NA CHLORIDE 0.9% 100 ML IV SCH ×3 (01:26→16:16)
[2023-11-21 03:19] LABS: Hematocrit 34.5 % (39.6-49.0)
[2023-11-21 03:20] LABS: Albumin 2.6 g/dL (3.4-5.0); Bilirubin Direct 0.7 mg/dL (0-0.2); Bilirubin Indirect, Calculated 0.4 mg/dL (0.2-0.8); Bilirubin Total 1.1 mg/dL (0.2-1.0); Magnesium 1.6 mg/dL (1.6-2.4); Potassium 3.3 mEq/L (3.5-5.1); Protein, Total 7.4 g/dL (6.4-8.2)
[2023-11-21] MEDS ORDERED: MAGNESIUM SULFATE 1 gm IVPB 1 GM/100 ML BAG IV ONE (05:00)
[2023-11-21] MEDS: NA CHLORIDE 0.9% 1,000 ML IV SCH (05:07)
[2023-11-21] MEDS: INSULIN REGULAR (HUMAN) 100 UNIT/ML SQ SCH ×4 (07:30→20:50)
[2023-11-21 07:45] VITALS: O2SAT 94
[2023-11-21] MEDS: FAMOTIDINE 20 MG/2 ML VIAL IV PRN (08:58)
[2023-11-21] MEDS ORDERED: POTASSIUM CL SA 10 MEQ TAB PO ONE (09:00)
[2023-11-21 09:35] LABS: Bilirubin Direct 0.7 mg/dL (0-0.2); Bilirubin Total 1.1 mg/dL (0.2-1.0)
[2023-11-21] MEDS ORDERED: METOPROLOL TARTRATE 5 MG/5 ML INJ IV STA (11:53)
--- NOTE | 2023-11-21 15:34 | P.PN ---
Subjective Date of Service: 11/21/23 Chief Complaint: Acute cholecystitis POD # 2 from laparoscopic cholecystectomy with indocyanine green cholangiography. This morning, while on rounds, he developed atrial fibrillation with rapid ventricular response. His heart rates were in the 130s-150s. He was asymptomatic during this episode. He was given metoprolol 5 mg IV x 1, with improvement of his heart rates to the 100s-110s. Spoke with Dr. Mason, who recommended no anticoagulation for 7 days post-operatively if able. He requested a CT abdomen/pelvis, which was ordered. I spoke with current on-call surgeon, Dr. Merchant, who will review CT once its available. I have also spoken with Dr. Duval regarding his atrial fibrillation. Review of Systems 10-point ROS is otherwise unremarkable Gastrointestinal: Abdominal Pain (minimal) Physical Examination - Vital Signs Temperature: 98.9 F Blood Pressure: 140/83 Pulse: 135 Respirations: 20 Pulse Ox (%): 97 - Physical Exam General: Alert, In no apparent distress, Oriented x3 HEENT: Atraumatic, Mucous membr. moist/pink, Sclerae nonicteric Neck: JVD not distended Respiratory: Clear to auscultation bilaterally, Normal air movement Cardiovascular: No edema, No murmurs, Irregular heart rate/rhythm Gastrointestinal: Hypoactive, Non-distended, No rebound, No guarding, Other (surgical sites covered in clean dressing), Tenderness (near surgical sites) Musculoskeletal: No clubbing Integumentary: No rashes Neurological: Normal speech, Normal affect Assessment And Plan - Plan # Acute Cholecystitis with Cholelithiasis - US abdomen = "no gallbladder wall thickening with a single large gallstone near the neck. Findings raise concern for cholecystitis in the appropriate clinical setting. No intra or extrahepatic biliary ductal dilation." - General Surgery consulted and spoke with Dr. Mason - recommendations appreciated - S/P laparoscopic cholecystectomy with indocyanine green cholangiography on 11/19/23 - Continue Piperacillin-Tazobactam - As needed pain control # Post-Operative Atrial Fibrillation with Rapid Ventricular Response - He denies any prior history of atrial fibrillation - Heart rates improved with metoprolol 5 mg IV x 1 - Ordered metoprolol tartrate 25 mg BID - Consulted Cardiology and spoke with Dr. Duval - recommendations appreciated - Spoke with Dr. Mason, who recommends holding anticoagulation x 7 days post- op - Requested CT abdomen/pelvis, which has been ordered. I spoke with Dr. Merchant (on-call Surgeon), who will review CT once available # Coronary Artery Disease s/p PCI # Hypertension # Dyslipidemia - Continue home atorvastatin - Discontinue aspirin in anticipation for surgery # Type II Diabetes Mellitus - Correction scale insulin # Tobacco Use Disorder - Smoking cessation counseling Casey Boyd M.D.
[2023-11-21] MEDS: METOPROLOL TAR 25 MG TAB PO SCH ×2 (16:17→17:27)
--- NOTE | 2023-11-21 17:42 | RAD REPORT ---
EXAM DESCRIPTION: CT - Abdomen Pelvis W Contrast - 11/21/2023 2:56 pm CLINICAL HISTORY: Abdominal pain COMPARISON: 11/18/2023 TECHNIQUE: Computed axial tomography of the abdomen pelvis was obtained. 100 cc Isovue-300 was admin istered intravenously. Oral contrast was not requested which limits evaluation of bowel and appendix All CT scans are performed using dose optimization technique as appropriate and may include automated exposure control or mA/KV adjustment according to patient size. FINDINGS: Cholecystectomy. Ill-defined fluid gallbladder fossa extending adjacent to the inferior as pect right lobe liver. A couple of air bubbles are noted. Trace amount of free fluid within the pelvi s. The liver, spleen, pancreas, adrenal and kidneys appear unremarkable. There is no evidence of diverticulitis. A small left inguinal hernia contains fat. Large right inguinal hernia contains appendix and small am ount of ascites. Mild prostatic enlargement Spondylosis lumbar spine resulting in spinal stenosis IMPRESSION: Ill-defined fluid gallbladder fossa extending adjacent to the inferior aspect right lobe liver may represent a hematoma, abscess or bile
[2023-11-21] MEDS: ATORVASTATIN 40 MG TAB PO SCH (20:30)
[2023-11-21] MEDS ORDERED: HEPARIN/D5W 25,000 UNIT/500 ML BAG IV SCH ×2 (23:45)
[2023-11-22] MEDS: PIPER TAZO 3.375 GM in NA CHLORIDE 0.9% 100 ML IV SCH ×3 (00:51→17:17)
--- NOTE | 2023-11-22 02:26 | P.CNS ---
Date of Consult: 11/21/23 Reason for Consult: a fib with RVR Requesting Physician: Casey Boyd Chief Complaint: Acute cholecystitis History of Present Illness: Mr. Bridges is a 68-year-old who underwent a lap raffaele yesterday for acute cholecystitis per Dr. Mason. As primary medicine team was discussing discharge Mr. Wahl was noted to be in atrial fibrillation with rapid ventricular response in the 170s. Cardiology was consulted for management of at rial fibrillation and anticoagulant use given the recent surgery. Dr. Mason would prefer waiting 10 days postop for anticoagulation. Allergies No Known Allergies Allergy (Unverified 11/18/23 16:22) Home medications list reviewed: Yes Home Medications: Amlodipine [Norvasc] 5 mg PO DAILY 11/19/23 Fenofibrate [Tricor] 145 mg PO DAILY 11/19/23 Lisinopril [Zestril] 1 tab PO DAILY 11/19/23 Omeprazole 1 tab PO DAILY 11/19/23 Simvastatin 1 tab PO BEDTIME 11/19/23 Sitagliptin Phos/Metformin HCl [Janumet 50-1,000 mg Tablet] 1 tab PO DAILY 11/19/23 carvediloL [Carvedilol] 6.25 mg PO DAILY 11/19/23 - Past Medical/Surgical History Diabetic: Yes -: Coronary artery disease -: HTN -: Hyperlipidemia -: DM -: [place] -: Arthritis -: Cardiac catheterization with stent placement - Family History Father Medical History: Stroke - Social History Alcohol use: No CD- Drugs: No Place of Residence: Home Review of Systems 10-point ROS is otherwise unremarkable Cardiovascular: As per HPI Gastrointestinal: As per HPI Physical Examination Temp Pulse Resp BP Pulse Ox 97.7 F 82 20 118/72 97 11/21/23 20:00 11/21/23 20:00 11/21/23 21:56 11/21/23 20:00 11/21/23 21:56 General: Alert, In no apparent distress, Oriented x3 HEENT: Atraumatic, Normocephalic, PERRLA Neck: Supple, 2+ carotid pulse no bruit, JVD not distended Respiratory: Normal air movement Cardiovascular: No edema, Normal pulses Capillary refill: <2 Seconds Gastrointestinal: Other (serous fluid from umbilical brisa) Musculoskeletal: No clubbing Integumentary: No rashes Neurological: Normal speech, Normal tone Lymphatics: No axilla or inguinal lymphadenopathy External genitalia: Deferred Rectal: Deferred Conclusions/Impression: Atrial fibrillation with rapid ventricular response Yuri Vas score 4 Secondary to recent surgery we will attempt to restore sinus rhythm with metoprolol 11/21/23 Converted to sinus rhythm, remains in sinus rhythm - continue metoprolol Hypertension Continue current antihypertensives with the addition of metoprolol Hyperlipidemia Continue current statin Diabetes Tight blood sugar control encouraged
[2023-11-22 03:35] LABS: Hematocrit 33.9 % (39.6-49.0)
[2023-11-22 03:52] LABS: Albumin 2.5 g/dL (3.4-5.0); Bilirubin Total 0.6 mg/dL (0.2-1.0); Magnesium 1.9 mg/dL (1.6-2.4); Phosphorus 1.7 mg/dL (2.5-4.9); Potassium 3.5 mEq/L (3.5-5.1); Protein, Total 7.5 g/dL (6.4-8.2)
[2023-11-22] MEDS: METOPROLOL TAR 25 MG TAB PO SCH ×2 (05:23→17:16)
[2023-11-22] MEDS: HYDROCODONE/APAP 5/325 MG TAB PO PRN ×3 (07:06→17:20)
[2023-11-22] MEDS: INSULIN REGULAR (HUMAN) 100 UNIT/ML SQ SCH ×3 (07:30→16:30)
--- NOTE | 2023-11-22 10:38 | RAD REPORT ---
EXAM DESCRIPTION: NM - Hepatobiliary System Imagin - 11/22/2023 10:02 am CLINICAL HISTORY: s/p raffaele, bile leak? Abdominal pain COMPARISON: Abdomen Pelvis W Contrast dated 11/21/2023 TECHNIQUE: The patient was administered 6.1 mCi Tc99m Choletec. Imaging of the right upper quadrant was performed initially for up to 60 minutes. FINDINGS: The gallbladder surgically absent. There is normal excretion of radiopharmaceutical into the common bile duct and small bowel. Mild refl ux is seen into the stomach. Ill-defined collection of radiopharmaceutical is present in the gallbladder fossa which mildly reduce s intensity over time suggesting biloma. No free flow bile leak. IMPRESSION: Recently detected oblong fluid collection in the gallbladder fossa seen on CT 11/21/2023 likely represents a biloma. A free-flowing bile leak is not seen.
[2023-11-22] MEDS: FAMOTIDINE 20 MG/2 ML VIAL IV PRN (12:02)
[2023-11-22 12:56] VITALS: TEMP 97.5
[2023-11-22] MEDS ORDERED: POTASSIUM PHOS IN 0.9 % NACL 15 MMOL/250 ML BAG IV ONE (14:00)
--- NOTE | 2023-11-22 17:13 | P.DS ---
Admission Date: 11/18/23 Discharge Date: 11/22/23 Disposition: ROUTINE DISCHARGE Discharge Condition: GOOD Reason for Admission: Acute cholecystitis Consultations: 1. General Surgery Procedures: - 11/19/2023 - Laparoscopic Cholecystectomy with Indocyanine Green Cholangiography Hospital Course: DIAGNOSES: # Acute Cholecystitis with Cholelithiasis # Post-Operative Atrial Fibrillation with Rapid Ventricular Response # Coronary Artery Disease s/p PCI # Hypertension # Dyslipidemia # Type II Diabetes Mellitus # Tobacco Use Disorder HOSPITAL COURSE: Mr. Carlos Bridges is a pleasant 68 year old male with a past medical history significant for coronary artery disease s/p PCI, hypertension, type II diabetes mellitus, and dyslipidemia who was admitted to the [facility] on 11/18/2023 for abdominal pain. He was admitted to the Medicine service. Upon further evaluation, he was found to have acute cholecystitis with cholelithiasis. General Surgery was consulted and he was evaluated by Dr. Mason. On 11/19/2023, he underwent laparoscopic cholecystectomy with indocyanine green cholangiography. His post-operative course was complicated by atrial fibrillation with rapid ventricular response, which converted to normal sinus rhythm with metoprolol. Given his new-onset atrial fibrillation, Dr. Mason requested a post-operative CT abdomen/pelvis, which revealed, "ill-defined fluid gallbladder fossa extending adjacent to the inferior aspect right lobe liver may represent a hematoma, abscess or bile." Dr. Merchant (on-call surgeon) was consulted and recommended a HIDA scan, which revealed, "recently detected oblong fluid collection in the gallbladder fossa seen on CT 11/21/2023 likely represents a biloma. A free-flowing bile leak is not seen." He spoke with the interpreting radiologist (Dr. Drummond), and there was a concern for a potential bile leak. Dr. Merchant and Dr. Mason recommended transfer to a tertiary care center for ERCP with stent placement. Transfer was initiated and doc-to-doc was completed with Dr. Singh ([facility] Hospitalist), who has generously accepted him for transfer. On 11/22/2023, he was seen on rounds and deemed medically stable for discharge. He and his family members were given the opportunity to ask questions and reported no further questions. Furthermore, all questions were answered to the best of my ability. Today, I personally spent 35 minutes on his case, of which greater than 50% of the time was spent in patient education, counseling, and coordination of care as described above. Vital Signs/Physical Exam: Temp Pulse Resp BP Pulse Ox 97.5 F 86 14 120/78 95 11/22/23 12:00 11/22/23 12:00 11/22/23 13:07 11/22/23 12:00 11/22/23 13:07 General: Alert, In no apparent distress, Oriented x3 HEENT: Atraumatic, Mucous membr. moist/pink Neck: JVD not distended Respiratory: Clear to auscultation bilaterally, Normal air movement Cardiovascular: No edema, Regular rate/rhythm, Normal S1 S2, No gallops, No rubs, No murmurs Gastrointestinal: Normal bowel sounds, Soft and benign, No tenderness, Other (surgical sites are covered in clean dressing) Musculoskeletal: No clubbing Integumentary: No rashes Neurological: Normal speech, Normal affect Laboratory Data at Discharge: WBC 10.30 thou/uL (4.3-10.9) 11/20/23 01:40 Hgb 11.5 g/dL (13.6-17.9) L 11/22/23 03:23 Hct 33.9 % (39.6-49.0) L 11/22/23 03:23 Plt Count 203 thou/uL (152-406) 11/20/23 01:40 PT 15.8 SECONDS (9.5-12.5) H 11/19/23 04:11 INR 1.45 11/19/23 04:11 APTT 35.7 SECONDS (24.3-36.9) 11/19/23 04:11 Sodium 138 mEq/L (136-145) 11/22/23 03:23 Potassium 3.5 mEq/L (3.5-5.1) D 11/22/23 03:23 BUN 10 mg/dL (7-18) 11/22/23 03:23 Creatinine 1.27 mg/dL (0.70-1.30) 11/22/23 03:23 Glucose 172 mg/dL (74-106) H 11/22/23 03:23 Phosphorus 1.7 mg/dL (2.5-4.9) L 11/22/23 03:23 Magnesium 1.9 mg/dL (1.6-2.4) 11/22/23 03:23 Total Bilirubin 0.6 mg/dL (0.2-1.0) 11/22/23 03:23 AST 20 U/L (15-37) 11/22/23 03:23 ALT 35 U/L (16-61) 11/22/23 03:23 Alkaline Phosphatase 60 U/L (45-117) 11/22/23 03:23 Triglycerides 169 mg/dL (<150) H 11/19/23 04:10 Cholesterol 98 mg/dL (<200) 11/19/23 04:10 HDL Cholesterol 29 mg/dL (40-60) L 11/19/23 04:10 Cholesterol/HDL Ratio 3.38 11/19/23 04:10 Lipase 56 U/L (13-75) 11/18/23 08:50 Home Medications: Amlodipine [Norvasc*] 5 mg PO DAILY 11/19/23 Fenofibrate [Tricor*] 145 mg PO DAILY 11/19/23 Lisinopril [Zestril] 1 tab PO DAILY 11/19/23 Omeprazole 1 tab PO DAILY 11/19/23 Sitagliptin Phos/Metformin HCl [Janumet 50-1,000 mg Tablet] 1 tab PO DAILY 11/19/23 Atorvastatin Calcium [Lipitor] 40 mg PO BEDTIME tab 11/22/23 Famotidine [Pepcid*] 20 mg IV BID PRN vial 11/22/23 Metoprolol Tartrate [Lopressor*] 25 mg PO BID 6AM 6PM tab 11/22/23 Physician Discharge Instructions: - Continue care at [facility] Diet: [place] Activity: No lifting more than 10 lbs Followup: Kurt Mason MD [ACTIVE - CAN ADMIT] - Ricardo Delgado DO [Primary Care Provider] - Time spent managing pt's care (in minutes): 35
[2023-11-22 17:27] VITALS: BP 153/91
[2023-11-22 17:41] LABS: Bilirubin Direct 0.2 mg/dL (0-0.2); Bilirubin Total 0.5 mg/dL (0.2-1.0)
== END 2023-11-22 18:02 | disposition home or self-care (01) | DRG 418 ==
LOC: ER 08:11 → ERHOLD 13:00 → 2ND 18:29
PROVIDERS: ADMIT Hospitalist; ATTEND Internal Medicine
PROC: BF53200 Other Imaging of Gallbladder and Bile Ducts using Fluorescing Agent, Indocyanine Green Dye, Intraoperative (ICD-10-PCS; 2023-11-19)
PROC: 0W3P8ZZ Control Bleeding in Gastrointestinal Tract, Via Natural or Artificial Opening Endoscopic (ICD-10-PCS; 2023-11-19)
PROC: XW0G886 Introduction of Mineral-based Topical Hemostatic Agent into Upper GI, Via Natural or Artificial Opening Endoscopic, New Technology Group 6 (ICD-10-PCS; 2023-11-19)
PROC: 0FT44ZZ Resection of Gallbladder, Percutaneous Endoscopic Approach (ICD-10-PCS; principal; 2023-11-19 17:00)
DX: K80.00 Calculus of gallbladder with acute cholecystitis without obstruction (principal); I97 Intraoperative and postprocedural complications and disorders of circulatory system, not elsewhere classified; K82.1 Hydrops of gallbladder; K91.89 Other postprocedural complications and disorders of digestive system; Q44.5 Other congenital malformations of bile ducts; E11.9 Type 2 diabetes mellitus without complications; I25.10 Atherosclerotic heart disease of native coronary artery without angina pectoris; E78.5 Hyperlipidemia, unspecified; F17.210 Nicotine dependence, cigarettes, uncomplicated; Z95.5 Presence of coronary angioplasty implant and graft; K82.A1 Gangrene of gallbladder in cholecystitis; I48.91 Unspecified atrial fibrillation; I10 Essential (primary) hypertension; K83.8 Other specified diseases of biliary tract; K42.9 Umbilical hernia without obstruction or gangrene; K66.0 Peritoneal adhesions (postprocedural) (postinfection)
CPT/HCPCS: 36415; 74177; 76705; 78226; 80048; 80053; 80061; 80076; 81001; 82247; 82248; 82947; 83690; 83735; 84100; 84132; 84484; 85014; 85018; 85025; 85610; 85730; 86850; 86900; 86901; 88304; 93005; 96365; 96366; 96375; 99284; A4216; A9537; J1170; J1650; J1815; J2001; J2250; J2270; J2371; J2405; J2543; J2704; J3010; J3475; J7030; Q9967